=== PATIENT | male | born 1945 | race Caucasian/White ===

== ENCOUNTER 2016-10-30 11:00 | Outpatient (CLI) | payer MEDICARE, OTHER | END 2016-10-30 11:01 | disposition home or self-care (01) | DX: I10 Essential (primary) hypertension (principal); N40.1 Benign prostatic hyperplasia with lower urinary tract symptoms; E74.39 Other disorders of intestinal carbohydrate absorption ==

== ENCOUNTER 2017-02-23 12:58 | Emergency (ER) | payer MEDICARE, OTHER ==
[2017-02-23 13:03] VITALS: BP 136/68
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
--- NOTE | 2017-02-23 14:41 | XRAY Preliminary Report ---
Exam: XR Ribs w/PA Chest LT IMPRESSION: Normal chest and rib radiography. [facility] SITE ID: [id number]
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
== END 2017-02-23 13:38 | disposition home or self-care (01) ==
LOC: ED 12:58
DX: S20.212A Contusion of left front wall of thorax, initial encounter (principal); V18.0XXA Pedal cycle driver injured in noncollision transport accident in nontraffic accident, initial encounter; Y93.55 Activity, bike riding; R03.0 Elevated blood-pressure reading, without diagnosis of hypertension; N40.0 Benign prostatic hyperplasia without lower urinary tract symptoms; Z86.010 Personal history of colon polyps; Z87.442 Personal history of urinary calculi
CPT/HCPCS: 99282; 99283

== ENCOUNTER 2017-10-06 12:41 | Emergency (ER) | payer MEDICARE, OTHER ==
[2017-10-06 12:48] VITALS: BP 144/81
--- NOTE | 2017-10-06 12:50 | ED Physician Documentation ---
PD HPI URI - Stated complaint Stated Complaint: COUGH,CONGESTION,SORE THROAT - Chief complaint Chief Complaint: Resp - History obtained from History obtained from: Patient, Family - History of Present Illness Timing - onset: Other (He has been ill for about 13 days with minimally productive cough, low-grade fevers. He has had markedly decreased active activity because of this, and has been sleeping in his chair because he feels more short of breath when laying flat.) Review of Systems Constitutional: reports: Fever, Chills, Myalgias (at the outset, now gone) Nose: reports: Rhinorrhea / runny nose (gone) Respiratory: reports: Dyspnea (mild), Cough GI: reports: Abdominal Pain (from coughing) Skin: reports: Rash (had a rash on Left abd wall, now gone) PD PAST MEDICAL HISTORY - Past Medical History Cardiovascular: None Respiratory: None Neuro: None Endocrine/Autoimmune: None GI: Colon polyps : Benign prostate hypertrophy, Kidney stones HEENT: None Psych: None Musculoskeletal: Chronic back pain Derm: None - Past Surgical History Past Surgical History: Yes General: Colonoscopy Ortho: Arthroscopic surgery - Present Medications Home Medications: Ambulatory Orders Medication Instructions Recorded Confirmed Alfuzosin HCl [Uroxatral] 10 mg PO DAILY 07/09/13 10/06/17 Aspirin [Aspir 81] 81 mg PO DAILY 07/09/13 10/06/17 Finasteride 5 mg PO DAILY 07/09/13 10/06/17 Lisinopril 5 mg PO DAILY 07/09/13 10/06/17 Loratadine [Claritin] 10 mg PO DAILY 07/09/13 10/06/17 Fluticasone [Flonase] 1 sprays SHARLENE BID 05/13/15 10/06/17 Albuterol Sulfate [Proventil Hfa 1 - 2 puffs IH Q4H PRN #1 10/06/17 Inhaler] hfa.aer.ad Azithromycin [Zithromax] 250 mg PO DAILY #4 tablet 10/06/17 guaiFENesin/CODEINE [Robitussin AC] 5 - 10 ml PO Q6H PRN #120 ml 10/06/17 - Allergies Allergies/Adverse Reactions: Allergies Allergy/AdvReac Type Severity Reaction Status Date / Time No Known Drug Allergies Allergy Verified 10/06/17 12:48 - Social History Does the pt smoke?: No Smoking Status: Never smoker Does the pt drink ETOH?: No Does the pt have substance abuse?: No - Immunizations Immunizations are current?: Yes - POLST Patient has POLST: No PD ED PE NORMAL - Vitals Vital signs reviewed: Yes - General General: Alert and oriented X 3, No acute distress - HEENT HEENT: PERRL, EOMI, Pharynx benign (s/p tonsillectomy) - Neck Neck: No bony TTP - Cardiac Cardiac: RRR, No murmur - Respiratory Respiratory: No respiratory distress, Clear bilaterally - Abdomen Abdomen: Non tender - Derm Derm: No rash - Neuro Neuro: Alert and oriented X 3, Normal speech Results - Vitals Vitals: Vital Signs - 24 hr 10/06/17 12:44 Temperature 36.5 C Heart Rate 95 Respiratory 16 Rate Blood Pressure 144/81 H O2 Saturation 94 Oxygen O2 Source Room air - Labs Labs: Laboratory Tests 10/06/17 10/06/17 13:20 13:20 WBC 8.5 RBC 4.12 L Hgb 12.5 L Hct 37.1 L MCV 90.2 MCH 30.4 MCHC 33.7 RDW 13.6 Plt Count 311 MPV 8.2 Neut # 5.3 Lymph # 2.1 [place] # 0.8 Eos # 0.3 Baso # 0.0 Absolute Nucleated RBC 0.00 Nucleated RBC % 0.0 Sodium 138 Potassium 3.8 Chloride 100 L Carbon Dioxide 26 Anion Gap 12.0 BUN 19 Creatinine 0.9 Estimated GFR (MDRD) 83 L Glucose 153 H Calcium 9.6 Total Bilirubin 0.3 AST 25 ALT 27 Alkaline Phosphatase 60 Total Protein 7.8 Albumin 4.0 Globulin 3.8 Albumin/Globulin Ratio 1.1 Lipase 24 - Rads (name of study) 2v chest Radiology: EMP read contemporaneously (NAD) PD MEDICAL DECISION MAKING - ED course ED course: 72-year-old with persistent symptoms of bronchitis/post influenza pneumonia for 13 days. Despite reassuring lab work and chest x-ray probably does merit a trial of antibiotics given the time course and pretty classic story for post influenza pneumonia. Departure - Departure Disposition: Home, Self Care Clinical Impression: Bronchitis Condition: Good Record reviewed to determine appropriate education?: Yes Instructions: Bronchitis Acute Dc Prescriptions: Albuterol Sulfate [Proventil Hfa Inhaler] 1 - 2 puffs IH Q4H PRN #1 hfa.aer.ad PRN Reason: Cough Azithromycin [Zithromax] 250 mg PO DAILY #4 tablet guaiFENesin/CODEINE [Robitussin AC] 5 - 10 ml PO Q6H PRN #120 ml PRN Reason: Cough Comments: Call your doctor to arrange a follow-up appointment, make the next available appointment. In the interim, return anytime if worse or if new symptoms develop. Your blood pressure was elevated today on check into the emergency department. This does not mean that you have hypertension, it is a common phenomenon to come to the emergency department and have elevated blood pressure. I recommend that you see your primary care physician within the week to have it rechecked when you are feeling better. Discharge Date/Time: 10/06/17 13:50
[2017-10-06] MEDS ORDERED: guaiFENesin/CODEINE 5 ML UDC PO STA (12:56)
--- NOTE | 2017-10-06 13:15 | XRAY Report ---
EXAM: CHEST RADIOGRAPHY EXAM DATE: 10/06/2017 01:06 PM. CLINICAL HISTORY: Cough, congestion. Chest pain. Shortness of air. COMPARISON: 02/23/2017. TECHNIQUE: 2 views. FINDINGS: Lungs/Pleura: No focal opacities evident. No pleural effusion. No pneumothorax. Normal volumes. Mediastinum: Heart size is normal. Aorta is mildly tortuous. Aortic atherosclerosis. Other: None. IMPRESSION: 1. No acute disease in the chest. [facility] Referring Provider Line: [phone] SITE ID: [id number]
[2017-10-06 13:24] LABS: BASOPHILS % (AUTO) 0.4 %; EOSINOPHILS # (AUTO) 0.3 10^3/uL (0.0-0.7); EOSINOPHILS % (AUTO) 3.5 %; HGB - HEMOGLOBIN 12.5 g/dL (14.0-18.0); LYMPHOCYTES # (AUTO) 2.1 10^3/uL (1.5-3.5); LYMPHOCYTES % (AUTO) 24.2 %; MEAN CORPUSCULAR HEMOGLOBIN 30.4 pg (27.0-31.0); MEAN CORPUSCULAR HGB CONC 33.7 g/dL (32.0-36.0); MEAN CORPUSCULAR VOLUME 90.2 fL (80.0-94.0); MEAN PLATELET VOLUME 8.2 fL (7.4-11.4); MONOCYTES # (AUTO) 0.8 10^3/uL (0.0-1.0); MONOCYTES % (AUTO) 9.5 %; NEUTROPHILS # (AUTO) 5.3 10^3/uL (1.5-6.6); NEUTROPHILS % (AUTO) 62.4 %; PLT - PLATELET COUNT 311 10^3/uL (130-450); RED BLOOD COUNT 4.12 10^6/uL (4.70-6.10); RED CELL DISTRIBUTION WIDTH 13.6 % (12.0-15.0); WHITE BLOOD COUNT 8.5 x10^3/uL (4.8-10.8)
[2017-10-06 13:37] LABS: ALBUMIN/GLOBULIN RATIO 1.1 (1.0-2.2); BILIRUBIN,TOTAL 0.3 mg/dL (0.2-1.0); CALCIUM 9.6 mg/dL (8.5-10.3); CREATININE 0.9 mg/dL (0.6-1.2); TOTAL PROTEIN 7.8 g/dL (6.7-8.2)
[2017-10-06] MEDS ORDERED: AZITHROMYCIN 250 MG TABLET PO STA (13:38)
== END 2017-10-06 13:50 | disposition home or self-care (01) ==
LOC: ED 12:41
DX: J40 Bronchitis, not specified as acute or chronic (principal); R03.0 Elevated blood-pressure reading, without diagnosis of hypertension; N40.0 Benign prostatic hyperplasia without lower urinary tract symptoms; Z86.010 Personal history of colon polyps; Z87.442 Personal history of urinary calculi; Z79.82 Long term (current) use of aspirin
CPT/HCPCS: 36415; 71046; 80053; 83690; 85025; 99283; A9270

== ENCOUNTER 2018-04-01 08:00 | Outpatient (CLI) | payer MEDICARE, OTHER ==
[2018-04-01 13:22] LABS: BASOPHILS % (AUTO) 0.3 %; EOSINOPHILS # (AUTO) 0.3 10^3/uL (0.0-0.7); EOSINOPHILS % (AUTO) 4.4 %; HGB - HEMOGLOBIN 13.2 g/dL (14.0-18.0); LYMPHOCYTES # (AUTO) 1.9 10^3/uL (1.5-3.5); LYMPHOCYTES % (AUTO) 32.6 %; MEAN CORPUSCULAR HEMOGLOBIN 30.8 pg (27.0-31.0); MEAN CORPUSCULAR HGB CONC 32.8 g/dL (32.0-36.0); MEAN PLATELET VOLUME 9.6 fL (7.4-11.4); MONOCYTES # (AUTO) 0.5 10^3/uL (0.0-1.0); MONOCYTES % (AUTO) 9.2 %; NEUTROPHILS # (AUTO) 3.1 10^3/uL (1.5-6.6); NEUTROPHILS % (AUTO) 53.5 %; PLT - PLATELET COUNT 220 10^3/uL (130-450); RED BLOOD COUNT 4.29 10^6/uL (4.70-6.10); RED CELL DISTRIBUTION WIDTH 14.8 % (12.0-15.0); WHITE BLOOD COUNT 5.9 x10^3/uL (4.8-10.8)
[2018-04-01 13:54] LABS: ALBUMIN/GLOBULIN RATIO 1.3 (1.0-2.2); ALKALINE PHOSPHATASE 47 IU/L (42-121); ALT ALANINE AMINOTRANSFERASE 21 IU/L (10-60); AST ASPARTATE AMINOTRANSFERASE 23 IU/L (10-42); BILIRUBIN,TOTAL 0.5 mg/dL (0.2-1.0); BUN - BLOOD UREA NITROGEN 28 mg/dL (6-20); CALCIUM 9.2 mg/dL (8.5-10.3); CARBON DIOXIDE - CO2 22 mmol/L (21-32); CHLORIDE 111 mmol/L (101-111); CHOL/HDL RATIO 2.5 (<5.0); CHOLESTEROL 178 mg/dL; CREATININE 1.1 mg/dL (0.6-1.2); GFR - MDRD 66 (>89); GLUCOSE 113 mg/dL (70-100); HDL CHOLESTEROL 71 mg/dL; LDL CHOLESTEROL,CALCULATED 97 mg/dL; LDL/HDL RATIO 1.4 (<3.6); SODIUM 141 mmol/L (135-145); VLDL CHOLESTEROL 10 mg/dL
== END 2018-04-01 08:01 | disposition home or self-care (01) ==
LOC: LAB.WCP 08:00
PROVIDERS: ATTEND Physician Assistant Medical
DX: I10 Essential (primary) hypertension (principal)
CPT/HCPCS: 36415; 80053; 80061; 83721; 85025

== ENCOUNTER 2018-06-03 14:21 | Emergency (ER) | payer MEDICARE, OTHER ==
[2018-06-03] MEDS ORDERED: BUFFERED LIDOCAINE 10 ML SYRINGE SUBQ ONE (14:33)
[2018-06-03] MEDS ORDERED: cephALEXin 250 MG CAPSULE PO STA (14:33)
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
[2018-06-03 15:42] VITALS: BP 152/69
== END 2018-06-03 15:42 | disposition home or self-care (01) ==
LOC: ED 14:21
DX: S61.402A Unspecified open wound of left hand, initial encounter (principal); W32.0XXA Accidental handgun discharge, initial encounter; R03.0 Elevated blood-pressure reading, without diagnosis of hypertension; Z79.82 Long term (current) use of aspirin
CPT/HCPCS: 12042; 73130; 99283; 99284; A9270

== ENCOUNTER 2018-08-25 07:44 | Day surgery (SDC) | payer MEDICARE, OTHER ==
[2018-08-25] MEDS ORDERED: MIDAZOLAM 2 MG/2 ML VIAL IVP ONE (09:00)
[2018-08-25] MEDS ORDERED: fentaNYL 250 MCG/5 ML VIAL IVP ONE (09:00)
[2018-08-25] MEDS ORDERED: LACTATED RINGERS 1,000 ML IV ONE (09:03)
[2018-08-25 10:26] VITALS: BP 114/67
== END 2018-08-25 07:45 | disposition home or self-care (01) ==
LOC: SDS 07:44
PROVIDERS: ATTEND Surgery
PROC: 0DJD8ZZ Inspection of Lower Intestinal Tract, Via Natural or Artificial Opening Endoscopic (ICD-10-PCS; principal; 2018-08-25 09:00)
DX: K62.5 Hemorrhage of anus and rectum (principal); K57.30 Diverticulosis of large intestine without perforation or abscess without bleeding; K64.8 Other hemorrhoids; Z86.010 Personal history of colon polyps; Z80.0 Family history of malignant neoplasm of digestive organs; Z87.891 Personal history of nicotine dependence
CPT/HCPCS: 45378; J3010; J7120

== ENCOUNTER 2019-02-12 08:00 | Outpatient (CLI) | payer MEDICARE, OTHER ==
[2019-02-12 13:42] LABS: ALBUMIN 3.8 g/dL (3.2-5.5); ALBUMIN/GLOBULIN RATIO 1.4 (1.0-2.2); ALKALINE PHOSPHATASE 47 IU/L (42-121); ALT ALANINE AMINOTRANSFERASE 21 IU/L (10-60); AST ASPARTATE AMINOTRANSFERASE 20 IU/L (10-42); BILIRUBIN,TOTAL 0.5 mg/dL (0.2-1.0); BUN - BLOOD UREA NITROGEN 23 mg/dL (6-20); CHOL/HDL RATIO 2.7 (<5.0); CHOLESTEROL 173 mg/dL; CREATININE 0.9 mg/dL (0.6-1.2); GFR - MDRD 82 (>89); HDL CHOLESTEROL 63 mg/dL; TOTAL PROTEIN 6.5 g/dL (6.7-8.2)
[2019-02-12 13:47] LABS: BASOPHILS % (AUTO) 0.8 %; EOSINOPHILS # (AUTO) 0.3 10^3/uL (0.0-0.7); EOSINOPHILS % (AUTO) 5.6 %; HGB - HEMOGLOBIN 12.1 g/dL (14.0-18.0); LYMPHOCYTES # (AUTO) 1.8 10^3/uL (1.5-3.5); LYMPHOCYTES % (AUTO) 38.2 %; MEAN CORPUSCULAR HEMOGLOBIN 30.4 pg (27.0-31.0); MEAN CORPUSCULAR HGB CONC 32.6 g/dL (32.0-36.0); MEAN CORPUSCULAR VOLUME 93.3 fL (80.0-94.0); MEAN PLATELET VOLUME 9.7 fL (7.4-11.4); MONOCYTES # (AUTO) 0.6 10^3/uL (0.0-1.0); NEUTROPHILS # (AUTO) 2.1 10^3/uL (1.5-6.6); NEUTROPHILS % (AUTO) 43.4 %; PLT - PLATELET COUNT 202 10^3/uL (130-450); RED CELL DISTRIBUTION WIDTH 14.9 % (12.0-15.0); WHITE BLOOD COUNT 4.7 x10^3/uL (4.8-10.8)
[2019-02-12 14:06] LABS: LDL CHOLESTEROL,DIRECT 98 mg/dL; LDLD/HDL RATIO 1.6 (<3.6)
[2019-02-12 14:32] LABS: CALCIUM 8.7 mg/dL (8.5-10.3); CARBON DIOXIDE - CO2 24 mmol/L (21-32); CHLORIDE 111 mmol/L (101-111); GLUCOSE 115 mg/dL (70-100); SODIUM 143 mmol/L (135-145)
== END 2019-02-12 23:59 | disposition home or self-care (01) ==
LOC: LAB.WCP 08:00
PROVIDERS: ATTEND Physician Assistant Medical
DX: N40.1 Benign prostatic hyperplasia with lower urinary tract symptoms (principal); I10 Essential (primary) hypertension
CPT/HCPCS: 36415; 80053; 80061; 83721; 84443; 85025

== ENCOUNTER 2019-02-26 07:59 | Outpatient (CLI) | payer MEDICARE, OTHER ==
--- NOTE | 2019-02-26 12:10 | Ultrasound Report ---
Reason: FAMILY HISTORY OF TOBACCO ABUSE OR DEPENDENCE Procedure Date: 02/26/2019 Accession Number: [id number] / [id number] Procedure: US - Aorta Screening CPT Code: FULL RESULT: EXAM: AORTIC DOPPLER ULTRASOUND EXAM DATE: 02/26/2019 08:47 AM. CLINICAL HISTORY: Family history of tobacco abuse or dependence. COMPARISON: None. TECHNIQUE: Real-time sonographic imaging of retroperitoneal vascular structures, including color-flow, Doppler flow and spectral analysis was performed by the radar mechanic. Multiple agency service representative static images were saved for review. FINDINGS: Aorta: The abdominal aorta was adequately visualized. No evidence for abdominal aortic aneurysm. Aorta: Proxima: Sagittal AP 2.7 cm. Mid: Transverse 2.2 x 2.2 cm. Distal: Transverse 2.0 x 2.1 cm. Caliber: WNL: Yes. Plaque visualized: Yes. Iliacs: Right Iliac: Transverse 1.2 x 1.3 cm. Left Iliac: Transverse 1.2 x 1.3 cm. Iliac Vessels: The visualized proximal common iliac arteries are normal in caliber. Other: None. IMPRESSION: No abdominal aortic aneurysm. [facility]
== END 2019-02-26 08:00 | disposition home or self-care (01) ==
LOC: DI 07:59
PROVIDERS: ATTEND Physician Assistant Medical
DX: Z13.6 Encounter for screening for cardiovascular disorders (principal); Z81.2 Family history of tobacco abuse and dependence
CPT/HCPCS: 76706

== ENCOUNTER 2019-07-07 08:00 | Outpatient (CLI) | payer MEDICARE, OTHER ==
[2019-07-07 19:55] LABS: CALCIUM 8.7 mg/dL (8.5-10.3)
== END 2019-07-07 08:01 | disposition home or self-care (01) ==
LOC: LAB.WCP 08:00
PROVIDERS: ATTEND Urology
DX: Z87.442 Personal history of urinary calculi (principal); N40.1 Benign prostatic hyperplasia with lower urinary tract symptoms
CPT/HCPCS: 36415; 80048; 84153

== ENCOUNTER 2019-07-08 07:54 | Outpatient (CLI) | payer MEDICARE, OTHER ==
--- NOTE | 2019-07-09 05:12 | Ultrasound Report ---
Reason: HISTORY NEPHROLITHIASIS Procedure Date: 07/08/2019 Accession Number: [id number] / [id number] Procedure: US - Retroperitoneal CPT Code: FULL RESULT: EXAM: RENAL ULTRASOUND EXAM DATE: 07/08/2019 08:38 AM. CLINICAL HISTORY: HISTORY NEPHROLITHIASIS. COMPARISON: ABDOMEN/PELVIS W/ 05/13/2015 12:57 PM. TECHNIQUE: Real-time scanning was performed with static images obtained. FINDINGS: Right Kidney: 12.1 x 6.5 x 6.0 cm. Multiple parapelvic renal cysts, largest measuring 3.2 x 2.6 x 2.4 cm. No solid renal mass. No hydronephrosis. Left Kidney: 12.9 x 8.1 x 6.5 cm. Multiple parapelvic renal cysts, largest measuring 4.5 x 2.4 x 4.2 cm. No solid renal mass. No hydronephrosis. Bladder: Bilateral jets seen. The prevoid bladder volume was 90 cc. The postvoid bladder volume was 0 cc. Other: None. IMPRESSION: 1. Bilateral parapelvic renal cysts. No solid renal mass. 2. No hydronephrosis [facility]
== END 2019-07-08 07:55 | disposition home or self-care (01) ==
LOC: DI 07:54
PROVIDERS: ATTEND Urology
DX: Q61.02 Congenital multiple renal cysts (principal); Z87.442 Personal history of urinary calculi
CPT/HCPCS: 76770

== ENCOUNTER 2020-06-15 17:48 | Emergency (ER) | payer MEDICARE, OTHER ==
[2020-06-15] MEDS ORDERED: BUFFERED LIDOCAINE 10 ML SYRINGE SUBQ STA (17:54)
[2020-06-15] MEDS ORDERED: TETANUS/DIPHTHERIA/PERTUSSIS 0.5 ML SYRINGE IM ONE (17:54)
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
[2020-06-15 18:26] VITALS: BP 138/68
== END 2020-06-15 18:26 | disposition home or self-care (01) ==
LOC: ED 17:48
DX: S61.412A Laceration without foreign body of left hand, initial encounter (principal); W26.9XXA Contact with unspecified sharp object(s), initial encounter; Y93.E9 Activity, other interior property and clothing maintenance; Y92.009 Unspecified place in unspecified non-institutional (private) residence as the place of occurrence of the external cause; Z23 Encounter for immunization; Z79.82 Long term (current) use of aspirin
CPT/HCPCS: 12001; 90471; 99282; 99283

== ENCOUNTER 2020-08-08 08:50 | Outpatient (CLI) | payer MEDICARE, OTHER | END 2020-08-08 08:51 | disposition home or self-care (01) | LOC: LAB 08:50 | PROVIDERS: ATTEND Urology | DX: R31.29 Other microscopic hematuria (principal) | CPT/HCPCS: 36415; 82565; 84520 ==

== ENCOUNTER 2020-08-08 09:19 | Outpatient (CLI) | payer MEDICARE, OTHER ==
[2020-08-08] MEDS ORDERED: IOVERSOL 320 100 ML VIAL IVP ONE ×2 (09:34→10:01)
--- NOTE | 2020-08-08 12:26 | CT Report ---
PROCEDURE: IVP INDICATIONS: MICRO HEMATURIA, HX NEPHROLITHIASIS CONTRAST: IV CONTRAST: Optiray 320 ml: 140 PO CONTRAST: *NO PO CONTRAST TECHNIQUE: After the administration of intravenous contrast, 5 mm thick sections acquired from the diaphragms to the symphysis. 5 mm thick coronal and sagittal reformats were acquired. For radiation dose reducti on, the following was used: automated exposure control, adjustment of mA and/or kV according to jodi ent size. COMPARISON: None. FINDINGS: Image quality: Excellent. Lung bases: No pleural effusion. Right lower lobe 3 mm pulmonary nodule, (5/3). Heart size is normal. Urinary system: Both kidneys are normal in size and enhancement. Left kidney calculus measuring 0.9 cm, (4/40). No hydronephrosis. 3 mm nonobstructing calculus in the superior pole the right kidney. Nu merous bilateral peripelvic cysts. No solid renal mass. Small cortical hypodensity in the mid left ki dney too small to further characterize. No upper urinary tract filling defect within the opacified po rtions. The distal left ureter is not well opacified. Bladder wall thickness is normal. Solid organs: Liver and spleen are normal in size and enhancement. Gallbladder is unremarkable. Bi liary system is non dilated. Pancreas enhances normally. No adrenal nodules. Peritoneum and bowel: Bowel loops demonstrate normal wall thickness and caliber. No free fluid or a ir. Nodes and vessels: No retroperitoneal or mesenteric adenopathy by size criteria. Aorta and inferior vena cava are normal in size. Abdominal wall: No ventral hernias. Pelvis: No pathologic free pelvic fluid. Fat-containing left inguinal hernia or lipomatous hypertrop hy. No adenopathy. Bones: No suspicious bony lesions. Mild to moderate DDD at L5-S1. No vertebral body compression frac tures. IMPRESSION: 1. No upper urinary tract filling defect demonstrated. 2. No solid renal mass. 3. Calculus at the left UPJ measuring 9 mm. No hydronephrosis demonstrated to suggest obstruction. -Urology consultation may be beneficial. 4. Additional nonobstructing right kidney stone measuring 3 mm. 5. Numerous bilateral peripelvic cysts. Reviewed by: Keith Holloway MD on 08/08/2020 12:25 PM PST Approved by: Keith Holloway MD on 08/08/2020 12:25 PM PST Station ID: [id number]
== END 2020-08-08 09:20 | disposition home or self-care (01) ==
LOC: DI 09:19
PROVIDERS: ATTEND Urology
DX: N20.0 Calculus of kidney (principal); N28.1 Cyst of kidney, acquired
CPT/HCPCS: 74178; Q9967; 36415; 82565; 84520

== ENCOUNTER 2020-09-09 08:00 | Outpatient (CLI) | payer MEDICARE, OTHER ==
[2020-09-09 12:18] LABS: BASOPHILS % (AUTO) 0.4 %; EOSINOPHILS # (AUTO) 0.2 10^3/uL (0.0-0.7); EOSINOPHILS % (AUTO) 3.9 %; HGB - HEMOGLOBIN 12.2 g/dL (14.0-18.0); LYMPHOCYTES # (AUTO) 2.5 10^3/uL (1.5-3.5); LYMPHOCYTES % (AUTO) 43.7 %; MEAN CORPUSCULAR HEMOGLOBIN 30.9 pg (27.0-31.0); MEAN CORPUSCULAR HGB CONC 31.9 g/dL (32.0-36.0); MEAN CORPUSCULAR VOLUME 96.7 fL (80.0-94.0); MEAN PLATELET VOLUME 11.9 fL (7.4-11.4); MONOCYTES # (AUTO) 0.6 10^3/uL (0.0-1.0); MONOCYTES % (AUTO) 10.8 %; NEUTROPHILS # (AUTO) 2.3 10^3/uL (1.5-6.6); PLT - PLATELET COUNT 203 10^3/uL (130-450); RED BLOOD COUNT 3.95 10^6/uL (4.70-6.10); RED CELL DISTRIBUTION WIDTH 14.4 % (12.0-15.0); WHITE BLOOD COUNT 5.7 x10^3/uL (4.8-10.8)
[2020-09-09 13:51] LABS: ALBUMIN 4.3 g/dL (3.2-5.5); ALBUMIN/GLOBULIN RATIO 1.6 (1.0-2.2); ALKALINE PHOSPHATASE 40 IU/L (42-121); ALT ALANINE AMINOTRANSFERASE 18 IU/L (10-60); AST ASPARTATE AMINOTRANSFERASE 17 IU/L (10-42); BILIRUBIN,TOTAL 0.5 mg/dL (0.2-1.0); BUN - BLOOD UREA NITROGEN 30 mg/dL (6-20); CALCIUM 9.4 mg/dL (8.5-10.3); CARBON DIOXIDE - CO2 25 mmol/L (21-32); CHLORIDE 109 mmol/L (101-111); CHOL/HDL RATIO 3.2 (<5.0); CHOLESTEROL 214 mg/dL; CREATININE 1.1 mg/dL (0.6-1.2); GLUCOSE 115 mg/dL (70-100); HDL CHOLESTEROL 67 mg/dL; LDL CHOLESTEROL,CALCULATED 135 mg/dL; SODIUM 143 mmol/L (135-145); VLDL CHOLESTEROL 12 mg/dL
== END 2020-09-09 08:01 | disposition home or self-care (01) ==
LOC: LAB.WCP 08:00
PROVIDERS: ATTEND Physician Assistant Medical
DX: I10 Essential (primary) hypertension (principal); N40.1 Benign prostatic hyperplasia with lower urinary tract symptoms; N13.8 Other obstructive and reflux uropathy
CPT/HCPCS: 36415; 80053; 80061; 83721; 84153; 84443; 85025

== ENCOUNTER 2021-03-24 07:37 | Outpatient (CLI) | payer MEDICARE, OTHER ==
[2021-03-24 12:38] LABS: ALBUMIN 4.3 g/dL (3.2-5.5); ALBUMIN/GLOBULIN RATIO 1.7 (1.0-2.2); ALKALINE PHOSPHATASE 44 IU/L (42-121); ALT ALANINE AMINOTRANSFERASE 20 IU/L (10-60); AST ASPARTATE AMINOTRANSFERASE 17 IU/L (10-42); BILIRUBIN,TOTAL 0.8 mg/dL (0.2-1.0); BUN - BLOOD UREA NITROGEN 33 mg/dL (6-20); CARBON DIOXIDE - CO2 25 mmol/L (21-32); CHLORIDE 108 mmol/L (101-111); CHOL/HDL RATIO 3.3 (<5.0); CHOLESTEROL 230 mg/dL; GFR - MDRD 73 (>89); GLUCOSE 119 mg/dL (70-100); HDL CHOLESTEROL 69 mg/dL; LDL CHOLESTEROL,CALCULATED 147 mg/dL; LDL/HDL RATIO 2.1 (<3.6); POTASSIUM 4.2 mmol/L (3.5-5.0); SODIUM 141 mmol/L (135-145); TOTAL PROTEIN 6.9 g/dL (6.7-8.2); TRIGLYCERIDES 71 mg/dL; VLDL CHOLESTEROL 14 mg/dL
== END 2021-03-24 23:59 | disposition home or self-care (01) ==
LOC: LAB.WCP 07:37
PROVIDERS: ATTEND Physician Assistant Medical
DX: E78.5 Hyperlipidemia, unspecified (principal)
CPT/HCPCS: 36415; 80053; 80061; 83721

== ENCOUNTER 2021-04-07 08:15 | Outpatient (CLI) | payer MEDICARE, OTHER ==
--- NOTE | 2021-04-07 16:39 | Ultrasound Report ---
PROCEDURE: Head or Neck Soft Tissue INDICATIONS: DYSPHAGIA TECHNIQUE: Real-time scanning was performed of the thyroid gland, with image documentation. COMPARISON: None FINDINGS: Right: Thyroid lobe measures 4.5 x 1.7 x 1.7 cm, and is homogeneous in echotexture. Left: Thyroid lobe measures 3.3 x 1.0 x 1.4 cm, and is homogenous in echotexture. Isthmus: 0.5 mm thick. IMPRESSION: Asymmetric thyroid, right lobe larger than left lobe, without focal nodules. No suspicious findings. Reviewed by: Tyron Verma MD on 04/07/2021 4:38 PM PDT Approved by: Tyron Verma MD on 04/07/2021 4:38 PM PDT Station ID: [id number]
== END 2021-04-07 08:16 | disposition home or self-care (01) ==
LOC: DI 08:15
PROVIDERS: ATTEND Physician Assistant Medical
DX: R13.10 Dysphagia, unspecified (principal)

== ENCOUNTER 2021-10-27 07:55 | Outpatient (CLI) | payer MEDICARE, OTHER ==
[2021-10-27 11:58] LABS: BASOPHILS % (AUTO) 0.2 %; EOSINOPHILS # (AUTO) 0.2 10^3/uL (0.0-0.7); EOSINOPHILS % (AUTO) 3.8 %; HCT - HEMATOCRIT 38.2 % (42.0-52.0); HGB - HEMOGLOBIN 12.1 g/dL (14.0-18.0); LYMPHOCYTES # (AUTO) 2.1 10^3/uL (1.5-3.5); LYMPHOCYTES % (AUTO) 39.2 %; MEAN CORPUSCULAR HEMOGLOBIN 29.8 pg (27.0-31.0); MEAN CORPUSCULAR HGB CONC 31.7 g/dL (32.0-36.0); MEAN CORPUSCULAR VOLUME 94.1 fL (80.0-94.0); MEAN PLATELET VOLUME 11.4 fL (7.4-11.4); MONOCYTES # (AUTO) 0.6 10^3/uL (0.0-1.0); MONOCYTES % (AUTO) 11.6 %; NEUTROPHILS # (AUTO) 2.4 10^3/uL (1.5-6.6); NEUTROPHILS % (AUTO) 45.2 %; PLT - PLATELET COUNT 190 10^3/uL (130-450); RED BLOOD COUNT 4.06 10^6/uL (4.70-6.10); RED CELL DISTRIBUTION WIDTH 14.1 % (12.0-15.0); WHITE BLOOD COUNT 5.3 x10^3/uL (4.8-10.8)
[2021-10-27 12:28] LABS: ALBUMIN 3.9 g/dL (3.2-5.5); ALBUMIN/GLOBULIN RATIO 1.3 (1.0-2.2); ALKALINE PHOSPHATASE 41 IU/L (42-121); ALT ALANINE AMINOTRANSFERASE 15 IU/L (10-60); AST ASPARTATE AMINOTRANSFERASE 16 IU/L (10-42); BILIRUBIN,TOTAL 0.4 mg/dL (0.2-1.0); BUN - BLOOD UREA NITROGEN 35 mg/dL (6-20); CARBON DIOXIDE - CO2 26 mmol/L (21-32); CHLORIDE 108 mmol/L (101-111); GFR - MDRD 72 (>89); GLUCOSE 124 mg/dL (70-100); POTASSIUM 4.5 mmol/L (3.5-5.0); SODIUM 142 mmol/L (135-145); TOTAL PROTEIN 6.8 g/dL (6.7-8.2)
[2021-10-27 12:32] LABS: THYROID STIMULATING HORMONE 4.57 uIU/mL (0.34-5.60)
[2021-10-27 12:33] LABS: ESTIMATED AVERAGE GLUCOSE 134 mg/dL (70-100); HEMOGLOBIN A1c% 6.3 % (4.27-6.07)
[2021-10-27 16:55] LABS: CHOL/HDL RATIO 3.6 (<5.0); CHOLESTEROL 218 mg/dL; HDL CHOLESTEROL 61 mg/dL; LDL CHOLESTEROL,CALCULATED 140 mg/dL; LDL/HDL RATIO 2.3 (<3.6); TRIGLYCERIDES 84 mg/dL; VLDL CHOLESTEROL 17 mg/dL
== END 2021-10-27 07:56 | disposition home or self-care (01) ==
LOC: LAB.N 07:55
PROVIDERS: ATTEND Physician Assistant Medical
DX: I10 Essential (primary) hypertension (principal); E78.5 Hyperlipidemia, unspecified; R73.9 Hyperglycemia, unspecified; N40.1 Benign prostatic hyperplasia with lower urinary tract symptoms; Z79.899 Other long term (current) drug therapy; N13.8 Other obstructive and reflux uropathy
CPT/HCPCS: 36415; 80053; 80061; 83036; 83721; 84153; 84443; 85025

== ENCOUNTER 2022-02-05 06:56 | Outpatient (CLI) | payer MEDICARE, OTHER ==
--- NOTE | 2022-02-05 12:20 | Ultrasound Report ---
PROCEDURE: Carotid Doppler Complete INDICATIONS: NEAR SYNCOPE TECHNIQUE: Color and pulse Doppler interrogation was performed of both carotid systems, with image documentation and velocity measurements. COMPARISON: None FINDINGS: Right side: Brachial blood pressure: 144/70 mm Hg. Common carotid artery peak systolic velocity: 68 cm/sec. Internal carotid artery peak systolic velocity: 91 cm/sec. Internal carotid artery end diastolic velocity: 30 cm/sec. External carotid artery peak systolic velocity: 95 cm/sec. ICA/CCA peak systolic ratio: 1.34. Ye scale imaging description: Calcified plaque Percent internal carotid artery stenosis: Less than 50% . Vertebral artery: Flow direction is antegrade. Left side: Brachial blood pressure: 143/68 mm Hg. Common carotid artery peak systolic velocity: 56 cm/sec. Internal carotid artery peak systolic velocity: 92 cm/sec. Internal carotid artery end diastolic velocity: 35 cm/sec. External carotid artery peak systolic velocity: 72 cm/sec. ICA/CCA peak systolic ratio: 1.64 . Ye scale imaging description: Calcified plaque Percent internal carotid artery stenosis: Less than 50% . Vertebral artery: Flow direction is antegrade. IMPRESSION: Less than 50% stenosis of the right left internal carotid arteries. Hypertension at the time of image acquisition. The estimate of stenosis included in the report of the imaging study was calculated using the NASCET method Reviewed by: Catina Meyers MD, PhD on 02/05/2022 12:19 PM PDT Approved by: Catina Meyers MD, PhD on 02/05/2022 12:19 PM PDT Station ID: [id number]
== END 2022-02-05 06:57 | disposition home or self-care (01) ==
LOC: DI 06:56
PROVIDERS: ATTEND Internal Medicine
DX: I65.23 Occlusion and stenosis of bilateral carotid arteries (principal); R55 Syncope and collapse; I10 Essential (primary) hypertension
CPT/HCPCS: 93880

== ENCOUNTER 2023-04-04 07:13 | Outpatient (CLI) | payer MEDICARE, OTHER ==
[2023-04-04 13:18] LABS: ESTIMATED AVERAGE GLUCOSE 146 mg/dL (70-100); HEMOGLOBIN A1c% 6.7 % (4.27-6.07)
[2023-04-04 13:28] LABS: ALBUMIN 4.2 g/dL (3.2-5.5); ALBUMIN/GLOBULIN RATIO 1.4 (1.0-2.2); ALKALINE PHOSPHATASE 46 IU/L (42-121); ALT ALANINE AMINOTRANSFERASE 19 IU/L (10-60); AST ASPARTATE AMINOTRANSFERASE 18 IU/L (10-42); BILIRUBIN,TOTAL 0.6 mg/dL (0.2-1.0); BUN - BLOOD UREA NITROGEN 27 mg/dL (6-20); CALCIUM 9.3 mg/dL (8.5-10.3); CARBON DIOXIDE - CO2 28 mmol/L (21-32); CHLORIDE 105 mmol/L (101-111); CHOL/HDL RATIO 3.7 (<5.0); CHOLESTEROL 233 mg/dL; CREATININE 1.2 mg/dL (0.6-1.2); GFR - MDRD 59 (>89); GLUCOSE 130 mg/dL (70-100); HDL CHOLESTEROL 63 mg/dL; LDL CHOLESTEROL,CALCULATED 150 mg/dL; LDL/HDL RATIO 2.4 (<3.6); POTASSIUM 4.7 mmol/L (3.5-5.0); SODIUM 139 mmol/L (135-145); TOTAL PROTEIN 7.1 g/dL (6.7-8.2); TRIGLYCERIDES 98 mg/dL; VLDL CHOLESTEROL 20 mg/dL
== END 2023-04-04 07:14 | disposition home or self-care (01) ==
LOC: LAB.N 07:13
PROVIDERS: ATTEND Physician Assistant Medical
DX: E78.5 Hyperlipidemia, unspecified (principal); R73.9 Hyperglycemia, unspecified
CPT/HCPCS: 36415; 80053; 80061; 83036; 83721

== ENCOUNTER 2023-04-24 08:00 | Outpatient (CLI) | payer MEDICARE, OTHER ==
[2023-04-24 10:54] LABS: BILIRUBIN,URINE NEGATIVE (NEGATIVE); GLUCOSE, URINE (UA) NEGATIVE (NEGATIVE); KETONES,URINE (UA) NEGATIVE (NEGATIVE); LEUKOCYTE ESTERASE, URINE NEGATIVE (NEGATIVE); NITRITE,URINE NEGATIVE (NEGATIVE); OCCULT BLOOD,URINE NEGATIVE (NEGATIVE); PH,URINE 5.5 PH (5.0-7.5); PROTEIN,URINE NEGATIVE (NEGATIVE); UROBILINOGEN,URINE 0.2 (NORMAL) E.U./dL (NORMAL)
[2023-04-24 10:56] LABS: CLARITY,URINE CLEAR (CLEAR)
[2023-04-24 11:05] LABS: RBC,URINE 0-5 /HPF (0-5); WBC,URINE 0-3 /HPF (0-3)
[2023-04-24 11:06] LABS: BACTERIA,URINE Few /HPF (None Seen); SQUAMOUS EPITHELIAL CELL,UR RARE Squamous (<= Few)
== END 2023-04-24 23:59 | disposition home or self-care (01) ==
LOC: LAB 08:00
PROVIDERS: ATTEND Urology
DX: N40.1 Benign prostatic hyperplasia with lower urinary tract symptoms (principal); N13.8 Other obstructive and reflux uropathy
CPT/HCPCS: 81001; 87086

== ENCOUNTER 2023-07-18 07:05 | Outpatient (CLI) | payer MEDICARE, OTHER ==
[2023-07-18 12:29] LABS: ALBUMIN 4.5 g/dL (3.2-5.5); ALKALINE PHOSPHATASE 43 IU/L (42-121); ALT ALANINE AMINOTRANSFERASE 18 IU/L (10-60); AST ASPARTATE AMINOTRANSFERASE 19 IU/L (10-42); BILIRUBIN,TOTAL 0.4 mg/dL (0.2-1.0); BUN - BLOOD UREA NITROGEN 18 mg/dL (6-20); CALCIUM 9.6 mg/dL (8.5-10.3); CARBON DIOXIDE - CO2 30 mmol/L (21-32); CHLORIDE 108 mmol/L (101-111); CHOL/HDL RATIO 2.2 (<5.0); CHOLESTEROL 122 mg/dL; CREATININE 1.1 mg/dL (0.6-1.3); GFR - MDRD 65 (>89); GLUCOSE 98 mg/dL (74-104); HDL CHOLESTEROL 55 mg/dL; LDL CHOLESTEROL,CALCULATED 54 mg/dL; POTASSIUM 4.4 mmol/L (3.5-4.5); SODIUM 143 mmol/L (135-145); TOTAL PROTEIN 6.7 g/dL (6.4-8.9); TRIGLYCERIDES 64 mg/dL (48-352); VLDL CHOLESTEROL 13 mg/dL
[2023-07-18 12:48] LABS: ESTIMATED AVERAGE GLUCOSE 131 mg/dL (70-100); HEMOGLOBIN A1c% 6.2 % (4.27-6.07)
== END 2023-07-18 07:06 | disposition home or self-care (01) ==
LOC: LAB.N 07:05
PROVIDERS: ATTEND Physician Assistant Medical
DX: E11.9 Type 2 diabetes mellitus without complications (principal)
CPT/HCPCS: 36415; 80053; 80061; 83036; 83721

== ENCOUNTER 2023-08-18 12:12 | Outpatient (CLI) | payer MEDICARE, OTHER | END 2023-08-18 12:13 | disposition short-term general hospital (02) | LOC: EMS 12:12 | DX: R45.851 Suicidal ideations (principal); R45.89 Other symptoms and signs involving emotional state; Z56.89 Other problems related to employment | CPT/HCPCS: A0425; A0427 ==

== ENCOUNTER 2023-08-18 12:42 | Inpatient (IN) | payer MEDICARE, OTHER ==
--- NOTE | 2023-08-18 13:05 | ED Physician Documentation ---
History of Present Illness - Stated complaint Stated Complaint: FALL/BACK PX - Chief complaint Chief Complaint: Back Pain - History obtained from History obtained from: Patient, Family - History of Present Illness Timing: Last night Pain level max: 4 Pain level now: 2 - Additonal information Additional information: Patient is a 78-year-old male with a history of hypertension who presents to the emergency department after a fall last night. He states that he felt dizzy last night and tried to grab the towel bar, he states the towel bar ripped out of the wall and he landed on his back. He states that it took him about 20 minutes to get up. This morning he noted a fever. He does have a history of kidney stones and is having some low back pain. He states he did strike his head. He does not have any focal weakness or numbness. No slurred speech. Does not take any blood thinners. Worse with movement, better with rest. Review of Systems Constitutional: reports: Fever, Chills Nose: denies: Rhinorrhea / runny nose, Congestion Respiratory: denies: Cough GI: denies: Abdominal Pain, Nausea, Vomiting, Diarrhea : denies: Dysuria, Frequency, Hesitancy PD PAST MEDICAL HISTORY - Past Medical History Past Medical History: Yes Cardiovascular: None Respiratory: None Neuro: None Endocrine/Autoimmune: None GI: Colon polyps : Benign prostate hypertrophy, Kidney stones HEENT: None Psych: None Musculoskeletal: Chronic back pain Derm: None - Past Surgical History Past Surgical History: Yes General: Colonoscopy Ortho: Arthroscopic surgery - Present Medications Home Medications: Ambulatory Orders Medication Instructions Recorded Confirmed Finasteride 5 mg PO DAILY 07/09/13 08/18/23 Lisinopril 5 mg PO DAILY 07/09/13 08/18/23 Loratadine [Claritin] 10 mg PO DAILY 07/09/13 08/18/23 Rosuvastatin Calcium [Crestor] 10 mg PO DAILY 04/25/23 08/18/23 Tamsulosin [Flomax] 1 cap PO DAILY 04/25/23 08/18/23 Gabapentin [Neurontin] 300 mg PO HS 08/18/23 08/18/23 oxyBUTYnin chloride [Oxybutynin 5 mg PO DAILY 08/18/23 08/18/23 Chloride] - Allergies Allergies/Adverse Reactions: Allergies Allergy/AdvReac Type Severity Reaction Status Date / Time No Known Drug Allergies Allergy Verified 04/25/23 11:52 - Social History Does the pt smoke?: No Smoking Status: Never smoker Does the pt drink ETOH?: No Does the pt have substance abuse?: No - Immunizations Immunizations are current?: Yes - POLST Patient has POLST: No PD ED PE NORMAL - Vitals Vital signs reviewed: Yes - General General: Alert and oriented X 3, No acute distress - HEENT HEENT: Atraumatic, PERRL, Moist mucous membranes - Neck Neck: Supple, no meningeal sign, No bony TTP - Cardiac Cardiac: RRR, Strong equal pulses - Respiratory Respiratory: No respiratory distress, Clear bilaterally - Abdomen Abdomen: Soft, Non tender, Non distended - Back Back: No CVA TTP - Derm Derm: Warm and dry - Extremities Extremities: No edema, No calf tenderness / cord - Neuro Neuro: Alert and oriented X 3 - Psych Psych: Normal mood, Normal affect Results - Vitals Vitals: Vital Signs - 24 hr 08/18/23 08/18/23 08/18/23 12:44 12:58 14:54 Temperature 38.8 C H 36.8 C Heart Rate 86 80 101 H Respiratory 25 H 18 Rate Blood Pressure 131/61 H 116/72 O2 Saturation 90 L 93 97 Oxygen O2 Source Room air - Labs Labs: Laboratory Tests 08/18/23 08/18/23 08/18/23 15:18 15:18 15:49 WBC 10.2 RBC 3.54 L Hgb 10.5 L Hct 33.6 L MCV 94.9 H MCH 29.7 MCHC 31.3 L RDW 13.8 Plt Count 178 MPV 11.1 Neut # (Auto) 8.0 H Lymph # (Auto) 1.0 L Nance # (Auto) 1.2 H Eos # (Auto) 0.0 Baso # (Auto) 0.0 Absolute Nucleated RBC 0.00 Nucleated RBC % 0.0 Sodium 139 Potassium 3.9 Chloride 106 Carbon Dioxide 28 Anion Gap 5.0 L BUN 30 H Creatinine 1.6 H Estimated GFR (MDRD) 42 L Glucose 113 H Calcium 9.1 Phosphorus 3.7 Magnesium 1.9 Total Bilirubin 0.3 AST 17 ALT 13 Alkaline Phosphatase 42 Total Protein 6.1 L Albumin 3.8 Globulin 2.3 Albumin/Globulin Ratio 1.7 Lipase < 10 L Urine Color YELLOW Urine Clarity CLEAR Urine pH 6.0 Ur Specific [place] 1.020 Urine Protein TRACE Urine Glucose (UA) NEGATIVE Urine Ketones NEGATIVE Urine Occult Blood SMALL H Urine Nitrite NEGATIVE Urine Bilirubin NEGATIVE Urine Urobilinogen 0.2 (NORMAL) Ur Leukocyte Esterase SMALL H Urine RBC 6-10 H Urine WBC 11-25 H Ur Squamous Epith Cells RARE Squamous Urine Bacteria Few Ur Microscopic Review INDICATED Urine Culture Comments INDICATED - Rads (name of study) head CT Relevant Findings:: Final report received, See rad report C spine CT Relevant Findings:: Final report received, See rad report T spine CT Relevant Findings:: Final report received, See rad report L spine CT Relevant Findings:: Final report received, See rad report pelvis CT Relevant Findings:: Final report received, See rad report PD Medical Decision Making - ED course Complexity details: reviewed results, re-evaluated patient, considered differential, d/w patient ED course: Due to the patient's diffuse back pain, inability to pinpoint any specific point of pain and some pelvic pain, extensive CT scanning was undertaken to rule out any fractures. No acute findings on head CT, cervical spine CT, thoracic, lumbar spine CTs. His pelvic CT does show a 1 cm left ureteral stone, obstructing. He had a temperature of 38.8 upon arrival to the emergency department. Blood cultures drawn. Lactate drawn. Rocephin given. Discussed the case with Dr. Santos, urology on-call, he will admit the patient and plan on taking him to the OR tomorrow for stent placement and stone removal. Patient is well-appearing, nontoxic. This document was made in part using voice recognition software. While efforts are made to proofread this document, sound alike and grammatical errors may occur. Departure - Departure Disposition: [facility] DC/Xfer Clinical Impression: Ureterolithiasis UTI (urinary tract infection) Qualifiers: Urinary tract infection type: acute cystitis Hematuria presence: without hematuria Qualified Code(s): N30.00 - Acute cystitis without hematuria Fever Qualifiers: Fever type: unspecified Qualified Code(s): R50.9 - Fever, unspecified Condition: Stable Discharge Date/Time: 08/18/23 17:51
[2023-08-18] MEDS ORDERED: SODIUM CHLORIDE 0.9% 1,000 ML IV STA ×2 (15:09→16:39)
[2023-08-18 15:22] LABS: BASOPHILS % (AUTO) 0.2 %; HCT - HEMATOCRIT 33.6 % (42.0-52.0); HGB - HEMOGLOBIN 10.5 g/dL (14.0-18.0); MEAN CORPUSCULAR HEMOGLOBIN 29.7 pg (27.0-31.0); MEAN CORPUSCULAR HGB CONC 31.3 g/dL (32.0-36.0); MEAN CORPUSCULAR VOLUME 94.9 fL (80.0-94.0); MEAN PLATELET VOLUME 11.1 fL (7.4-11.4); MONOCYTES # (AUTO) 1.2 10^3/uL (0.0-1.0); MONOCYTES % (AUTO) 11.3 %; NEUTROPHILS % (AUTO) 78.1 %; PLT - PLATELET COUNT 178 10^3/uL (130-450); RED BLOOD COUNT 3.54 10^6/uL (4.70-6.10); RED CELL DISTRIBUTION WIDTH 13.8 % (12.0-15.0); WHITE BLOOD COUNT 10.2 x10^3/uL (4.8-10.8)
[2023-08-18 15:40] LABS: ALBUMIN 3.8 g/dL (3.2-5.5); ALBUMIN/GLOBULIN RATIO 1.7 (1.0-2.2); ALKALINE PHOSPHATASE 42 IU/L (42-121); ALT ALANINE AMINOTRANSFERASE 13 IU/L (10-60); AST ASPARTATE AMINOTRANSFERASE 17 IU/L (10-42); BILIRUBIN,TOTAL 0.3 mg/dL (0.2-1.0); BUN - BLOOD UREA NITROGEN 30 mg/dL (6-20); CALCIUM 9.1 mg/dL (8.5-10.3); CARBON DIOXIDE - CO2 28 mmol/L (21-32); CHLORIDE 106 mmol/L (101-111); CREATININE 1.6 mg/dL (0.6-1.3); GFR - MDRD 42 (>89); GLUCOSE 113 mg/dL (74-104); LIPASE < 10 U/L (11-82); MAGNESIUM 1.9 mg/dL (1.7-2.3); PHOSPHORUS 3.7 mg/dL (2.5-5.0); POTASSIUM 3.9 mmol/L (3.5-4.5); SODIUM 139 mmol/L (135-145); TOTAL PROTEIN 6.1 g/dL (6.4-8.9)
--- NOTE | 2023-08-18 15:51 | CT Report ---
PROCEDURE: HEAD WO INDICATIONS: fall, pain TECHNIQUE: Noncontrast 4.5 mm thick angled axial sections acquired from the foramen magnum to the vertex. For r adiation dose reduction, the following was used: automated exposure control, adjustment of mA and/or kV according to patient size. COMPARISON: Correlation is made with the accompanying CT examinations. FINDINGS: Image quality: There is streak artifact seen through the skull base. CSF spaces: Basal cisterns are patent. No extra-axial fluid collections. Ventricles are normal in size and shape. Brain: No midline shift. No intracranial masses or hemorrhage. Ye-white matter interface is norm al. Skull and face: Calvarium and visualized facial bones are intact, without suspicious lesions. Sinuses: Moderate mucosal thickening can be seen within the left maxillary sinus, mild mucosal thick ening elsewhere within the paranasal sinuses. No significant abnormal fluid can be seen within the ma stoid air cells. IMPRESSION: No acute intracranial pathology. No intracranial hemorrhage is seen. Reviewed by: Tulio Melo MD on 08/18/2023 2:49 PM [facility] Approved by: Tulio Melo MD on 08/18/2023 2:49 PM [facility] Station ID: [id number]
--- NOTE | 2023-08-18 15:53 | CT Report ---
PROCEDURE: CERVICAL SPINE WO INDICATIONS: fall, pain TECHNIQUE: Noncontrast 3 mm thick sections acquired from the skull base to the T4 level. Sagittal and coronal r eformats were then constructed. For radiation dose reduction, the following was used: automated exp osure control, adjustment of mA and/or kV according to patient size. COMPARISON: Correlation is made with the accompanying CT examinations. FINDINGS: Image quality: Excellent. Bones: No fractures or dislocations. Visualized superior ribs are intact. Focal degenerative change can be seen involving the C1-C2 interface anteriorly. There is moderate to severe disc space narrowing seen at C6-C7. Milder degenerative changes are seen elsewhere. Multiple levels of facet arthropathy can be seen, including fusion on the left at the C2-C3 level. Soft tissues: Prevertebral soft tissues are normal in thickness. No paravertebral hematomas. No ap ical pneumothoraces. Atherosclerotic calcification is seen. IMPRESSION: Negative for acute fracture. Multiple levels of underlying degenerative change can be seen. Reviewed by: Tulio Melo MD on 08/18/2023 2:51 PM [place] Approved by: Tulio Melo MD on 08/18/2023 2:51 PM [facility] Station ID: [id number]
--- NOTE | 2023-08-18 15:55 | CT Report ---
PROCEDURE: THORACIC SPINE WO INDICATIONS: fall, pain TECHNIQUE: Noncontrast 3 mm thick sections acquired through the region of interest in the thoracic spine. Sagit candido and coronal reformats were then constructed. For radiation dose reduction, the following was used : automated exposure control, adjustment of mA and/or kV according to patient size. COMPARISON: Correlation is made with the accompanying CT examinations. Correlation is also made with prior CT, 08/08/2020 FINDINGS: Image quality: There is partial resolution seen to the level of the shoulders, with quantum mottle ar tifact. This limits evaluation of the upper thoracic spine. Bones: There is normal overall bony alignment. No acute vertebral body compression fractures. No s uspicious sclerotic or lytic bony lesions. Central spinal canal is of normal overall caliber. Soft tissues: No paravertebral masses or hematomas. Visualized posteromedial lungs appear clear. A therosclerotic calcification can be seen, including involving the coronary arteries. Prominent bilate ral peripelvic cysts can be seen. IMPRESSION: No acute fracture can be seen, to the limits of this study. Additional findings: Atherosclerotic calcification, including involving coronary arteries Bilateral prominent peripelvic cysts Reviewed by: Tulio Melo MD on 08/18/2023 2:53 PM [facility] Approved by: Tulio Melo MD on 08/18/2023 2:53 PM [place] Station ID: [id number]
[2023-08-18 15:59] LABS: BILIRUBIN,URINE NEGATIVE (NEGATIVE); CLARITY,URINE CLEAR (CLEAR); GLUCOSE, URINE (UA) NEGATIVE (NEGATIVE); KETONES,URINE (UA) NEGATIVE (NEGATIVE); LEUKOCYTE ESTERASE, URINE SMALL (NEGATIVE); NITRITE,URINE NEGATIVE (NEGATIVE); OCCULT BLOOD,URINE SMALL (NEGATIVE); PROTEIN,URINE TRACE mg/dL (NEGATIVE); UROBILINOGEN,URINE 0.2 (NORMAL) E.U./dL (NORMAL)
--- NOTE | 2023-08-18 15:59 | CT Report ---
PROCEDURE: PELVIS WO INDICATIONS: fall, pain TECHNIQUE: Noncontrast 3 mm axial sections acquired through the bony pelvis, with coronal and sagittal reformatt ing. For radiation dose reduction, the following was used: automated exposure control, adjustment of mA and/or kV according to patient size. COMPARISON: Correlation is made with the company CT examinations. Correlation is also made with [facility] region CT, 08/08/2020 FINDINGS: Image quality: Excellent. Bones: Negative for acute fracture. Degenerative changes are seen throughout, including involving nahomy th hips and the visualized lower lumbar spine. There is fusion of the left sacroiliac joint. Soft tissues: There is moderate to prominent left-sided hydronephrosis. There is an obstructing ston e seen within the left ureter, as on series 3 image 18 and on series 5 image 46, measuring 1 cm and 1 400 Hounsfield units. Bilateral peripelvic cysts are again seen. No dilated loops of small bowel are seen. Atherosclerotic calcification is seen. There is a moderate fat-containing left renal hernia IMPRESSION: There is a 1 cm obstructing stone seen within the left proximal ureter. Associated left-sided hydrour eter and hydronephrosis can be seen. No acute bony abnormality is seen. Underlying degenerative changes are seen. Additional findings: Bilateral peripelvic cysts are seen. Moderate fat-containing left inguinal hernia Reviewed by: Tuilo Melo MD on 08/18/2023 2:58 PM AKST Approved by: Tulio Melo MD on 08/18/2023 2:58 PM [place] Station ID: [id number]
[2023-08-18 16:02] LABS: BACTERIA,URINE Few /HPF (None Seen); SQUAMOUS EPITHELIAL CELL,UR RARE Squamous (<= Few)
--- NOTE | 2023-08-18 16:03 | CT Report ---
PROCEDURE: LUMBAR SPINE WO INDICATIONS: fall, pain TECHNIQUE: Noncontrast 3 mm thick sections acquired from the T12 level to the sacrum. Sagittal and coronal refo rmats were constructed. For radiation dose reduction, the following was used: automated exposure co ntrol, adjustment of mA and/or kV according to patient size. COMPARISON: Correlation is made with the accompanying CT examinations. Correlation is also made with prior CT, 08/08/2020. FINDINGS: Image quality: Excellent. Bones: There is normal bony alignment. No acute vertebral body compression fractures. No suspiciou s lytic or blastic bony lesions. Central spinal caliber is of normal overall caliber. No pars defec ts. This patient has transitional anatomy. For the purposes of this examination, the level with last well -developed ribs is considered to be T12. By this numbering scheme, the S1 level is transitional and i s partially lumbarized. There is a vestigial rib seen on the right at the L1 level. Focal L5-S1 degenerative change is seen, with moderate disc space narrowing, with associated endplate irregularity and sclerosis. Vacuum disc phenomenon is seen at this level. There is moderate to sev ere right-sided and moderate left-sided neuroforaminal narrowing. Milder degenerative changes are seen elsewhere. Soft tissues: There is a 1 cm obstructive stone seen within the left ureter, as on series 2 image 63 , measuring 1400 Hounsfield units. There is associated left-sided hydroureter and hydronephrosis. Pro minent bilateral parapelvic cysts can be seen. No retroperitoneal masses or hematomas. Visualized aorta is normal in caliber. Atherosclerotic calc ification is seen. IMPRESSION: 1 cm obstructing stone within the left ureter. No acute bony abnormality is seen. Focal L5-S1 degenerative change is seen. Additional findings: Transitional lumbar anatomy Reviewed by: Tulio Melo MD on 08/18/2023 3:01 PM [facility] Approved by: Tulio Melo MD on 08/18/2023 3:01 PM [facility] Station ID: [id number]
[2023-08-18] MEDS ORDERED: cefTRIAXone 1 GM VIAL IVP STA (16:12)
[2023-08-18] MEDS ORDERED: HYDROmorphone 1 MG/ML CARPUJECT IVP STA (16:21)
[2023-08-18] MEDS ORDERED: ONDANSETRON 4 MG/2 ML VIAL IVP PRN (16:25)
[2023-08-18] MEDS ORDERED: SODIUM CHLORIDE FLUSH 0.9% 10 ML SYRINGE IVP PRN (16:25)
[2023-08-18] MEDS ORDERED: MORPHINE 2 MG/ML CARPUJECT IVP PRN (16:42)
[2023-08-18] MEDS ORDERED: oxyCODONE 5 MG TABLET PO PRN (16:42)
[2023-08-18] MEDS ORDERED: ZOLPIDEM 5 MG TABLET PO PRN (16:42)
[2023-08-18] MEDS ORDERED: ACETAMINOPHEN 325 MG TABLET PO PRN (16:42)
[2023-08-18] MEDS ORDERED: TAMSULOSIN 0.4 MG CAPSULE PO STA (17:00)
[2023-08-18] MEDS: SODIUM CHLORIDE FLUSH 0.9% 10 ML SYRINGE IVP SCH (17:17)
[2023-08-18] MEDS: SODIUM CHLORIDE 0.9% 1,000 ML IV SCH (17:20)
--- NOTE | 2023-08-18 17:21 | SURGERY HX AND PHYSICAL(T) ---
Surgical History & Physical - Chief Complaint/HPI Chief Complaint: Fever/fall History of Present Illness: Murray is a 78-year-old male with history of BPH, kidney stones, erectile dysfunction. He was last seen in the urology clinic 3 months ago where we offered further evaluation of his kidney stones but he was not interested at that time. He was going to follow-up in a years time. On Saturday, August 17 he had a weakness or dizziness episode causing him to fall. This morning on the he noted a fever and came to the ER for evaluation. He also has noted some lower back pain. He had CT scans to evaluate his spine and he was incidentally noted to have a 1 cm mid left ureteral stone. His creatinine is 1.6 from an unclear baseline. His urinalysis is concerning for infection his white count is minimally elevated at 10. In the ER he did have a low-grade fever of 38.2. Otherwise he has some mild tachycardia but hemodynamically stable. Overnight he states his pain was well-controlled and he feels well. The stone has not passed. He has noted some dysuria - PMH/PSH/Social Hx Does the pt have a hx of MRSA?: No Neurological History: None Eyes, Ears, Nose, Throat: None Cardiovascular: None Respiratory: None Skin: None Endocrine/Autoimmune: None Gastrointestinal: Colon polyps Urinary: Benign prostate hypertrophy, Kidney stones Musculoskeletal: Chronic back pain Blood Disorders: None Psychiatric: None General: Colonoscopy Orthopedic: Arthroscopic surgery Smoking Status: Never smoker Does the pt drink ETOH?: No Does the pt have substance abuse?: No - Home Meds and Allergies Home Medications: Finasteride 5 mg PO DAILY 07/09/13 Lisinopril 5 mg PO DAILY 07/09/13 Loratadine [Claritin] 10 mg PO DAILY 07/09/13 Rosuvastatin Calcium [Crestor] 10 mg PO DAILY 04/25/23 Tamsulosin [Flomax] 1 cap PO DAILY 04/25/23 Gabapentin [Neurontin] 300 mg PO HS 08/18/23 oxyBUTYnin chloride [Oxybutynin Chloride] 5 mg PO DAILY 08/18/23 Allergies/Adverse Reactions: Allergies Allergy/AdvReac Type Severity Reaction Status Date / Time No Known Drug Allergies Allergy Verified 04/25/23 11:52 - Vital Signs Heart Rate: 74 Blood Pressure: 133/67 Temperature: 38.2 C Respiratory Rate: 18 O2 Saturation: 94 Weight (kg): 79.379 kg Height: 1.71 m - Physical Exam General Appearance: positive: No acute distress Respiratory: positive: Breath sounds nml Cardiovascular: positive: Regular rate & rhythm - Patient Review Patient Review: Problems were reviewed with the patient during this visit. Medications were reviewed with the patient during this visit. Allergies were reviewed this patient during this visit. Pertinent Tests Reviewed: All pertitent test for this patient were reviewed. - Assessment & Plan Assessment and Plan: 78-year-old male with history of kidney stones now presents with a fall and left-sided back pain. Concern for urinary tract infection. CT scan with 1 cm mid left ureteral stone Plan: Cystoscopy, left ureteral stent placement. The risks, benefits, alter natives were discussed with the patient. The patient states understanding and consents to the above procedure Continue ceftriaxone N.p.o. until procedure Home meds as appropriate Pain control as appropriate Holding Toradol given creatinine of 1.6
[2023-08-18] MEDS: oxyCODONE 5 MG TABLET PO PRN ×2 (18:12→22:15)
[2023-08-18] MEDS ORDERED: GABAPENTIN 100 MG CAPSULE PO SCH (21:00)
[2023-08-19] MEDS: SODIUM CHLORIDE FLUSH 0.9% 10 ML SYRINGE IVP SCH ×2 (01:45→10:52)
[2023-08-19] MEDS: oxyCODONE 5 MG TABLET PO PRN (02:49)
[2023-08-19] MEDS: SODIUM CHLORIDE 0.9% 1,000 ML IV SCH (02:50)
[2023-08-19] MEDS ORDERED: FINASTERIDE 5 MG TABLET PO SCH (09:00)
[2023-08-19] MEDS ORDERED: DOCUSATE SODIUM 100 MG CAPSULE PO SCH (09:00)
--- NOTE | 2023-08-19 10:25 | PHARMACY PROGRESS NOTE ---
- Best Possible Medication History Admit Date and Time: 08/18/23 1625 Processed by: Nursing Secondary Source(s): Physician records, Insurance records As the person ultimately responsible for medication therapy, providers are able to order a medication from an existing home medication list in [facility] via the "Reconcile Routine" prior to Confirmation of that medication by production support developer. Such practice is discouraged except when the physician, in their clinical judgment, deems that a medical need exists for a medication without regard to previous use.
--- NOTE | 2023-08-19 11:37 | ANESTHESIA ---
Pre-Anesthesia VS, & Labs - Diagnosis kidney stones - Procedure cystoscopy, ureteral stent Vital Signs: Temp Pulse Resp BP Pulse Ox O2 Flow Rate 37.8 C 75 16 128/53 L 90 L 08/19/23 08:00 08/19/23 08:00 08/19/23 08:00 08/19/23 08:00 08/19/23 08:00 Height: 5 ft 7.5 in Weight (kg): 79.379 kg Body Mass Index: 27.0 BMI Classification: Overweight - NPO >8 hours - Lab Results Current Lab Results: Laboratory Tests 08/18/23 16:41: Lactic Acid 1.1 08/18/23 15:18: Sodium 139, Potassium 3.9, Chloride 106, Carbon Dioxide 28, Anion Gap 5.0 L, BUN 30 H, Creatinine 1.6 H, Estimated GFR (MDRD) 42 L, Glucose 113 H, Calcium 9.1, Phosphorus 3.7, Magnesium 1.9, Total Bilirubin 0.3, AST 17, ALT 13, Alkaline Phosphatase 42, Total Protein 6.1 L, Albumin 3.8, Globulin 2.3, Albumin/Globulin Ratio 1.7, Lipase < 10 L 08/18/23 15:18: WBC 10.2, RBC 3.54 L, Hgb 10.5 L, Hct 33.6 L, MCV 94.9 H, MCH 29.7, MCHC 31.3 L, RDW 13.8, Plt Count 178, MPV 11.1, Neut # (Auto) 8.0 H, Lymph # (Auto) 1.0 L, [place] # (Auto) 1.2 H, Eos # (Auto) 0.0, Baso # (Auto) 0.0, Absolute Nucleated RBC 0.00, Nucleated RBC % 0.0 Fish Bones: 08/18/23 15:18 08/18/23 15:18 Home Medications and Allergies Home Medications: Ambulatory Orders Gabapentin [Neurontin] 900 mg PO HS 08/18/23 oxyBUTYnin chloride [Oxybutynin Chloride ER] 5 mg PO QPM 08/19/23 Active Medications Acetaminophen (Acetaminophen 325 Mg Tablet) 650 mg PO Q4HR PRN PRN Reason: Pain 1 to 4, or Fever Docusate Sodium (Docusate Sodium 100 Mg Capsule) 100 mg PO DAILY [facility]YL[facility] Last Admin: 08/19/23 10:52 Dose: Not Given Finasteride (Finasteride 5 Mg Tablet) 5 mg PO DAILY [facility] Last Admin: 08/19/23 10:52 Dose: Not Given Gabapentin (Gabapentin 100 Mg Capsule) 300 mg PO ONCE [facility] Stop: 08/19/23 20:59 Last Admin: 08/18/23 20:32 Dose: 300 mg Ceftriaxone Sodium 1 gm/ (Sodium Chloride) 100 mls @ 200 mls/hr IV ONCE [facility] Stop: 08/19/23 17:01 Sodium Chloride (Normal Saline 0.9%) 1,000 mls @ 100 mls/hr IV .Q10H [facility] Last Admin: 08/19/23 02:50 Dose: 100 mls/hr Morphine Sulfate (Morphine 2 Mg/Ml Carpuject) 1 mg IVP Q2HR PRN PRN Reason: breakthrough pain Ondansetron HCl (Ondansetron 4 Mg/2 Ml Vial) 4 mg IVP Q6HR PRN PRN Reason: Nausea / Vomiting Oxycodone HCl (Oxycodone 5 Mg Tablet) 5 mg PO Q4HR PRN PRN Reason: Pain 5 to 7 Last Admin: 08/19/23 02:49 Dose: 5 mg Oxycodone HCl (Oxycodone 5 Mg Tablet) 10 mg PO Q4HR PRN PRN Reason: Pain 8 to 10 Sodium Chloride (Sodium Chloride Flush 0.9% 10 Ml Syringe) 10 ml IVP PRN PRN PRN Reason: NEEDED PER PROVIDER ORDERS Sodium Chloride (Sodium Chloride Flush 0.9% 10 Ml Syringe) 10 ml IVP 0100,0900,1700 [facility] Last Admin: 08/19/23 10:52 Dose: Not Given Zolpidem Tartrate (Zolpidem 5 Mg Tablet) 5 mg PO QPM PRN PRN Reason: Insomnia Finasteride 5 mg PO DAILY 07/09/13 Lisinopril 5 mg PO BID 07/09/13 Loratadine [Claritin] 10 mg PO DAILY 07/09/13 Rosuvastatin Calcium [Crestor] 10 mg PO DAILY 04/25/23 Tamsulosin [Flomax] 1 cap PO DAILY 04/25/23 Gabapentin [Neurontin] 900 mg PO HS 08/18/23 oxyBUTYnin chloride [Oxybutynin Chloride ER] 5 mg PO QPM 08/19/23 Allergies/Adverse Reactions: Allergies Allergy/AdvReac Type Severity Reaction Status Date / Time No Known Drug Allergies Allergy Verified 04/25/23 11:52 Anes History & Medical History - Anesthetic History Anesthesia Complications: reports: No previous complications - Medical History Cardiovascular: reports: None Pulmonary: reports: None Gastrointestinal: reports: Colon polyps Urinary: reports: Benign prostate hypertrophy, Kidney stones Neuro: reports: None Musculoskeletal: reports: Chronic back pain Endocrine/Autoimmune: reports: None Blood Disorders: reports: None Skin: reports: None Smoking Status: Never smoker - Surgical History General: reports: Colonoscopy Orthopedic: reports: Arthroscopic surgery Exam General: Alert, Oriented x3 Dental: WNL Mouth Opening: Greater than 4 Fingerbreadths Mallampati classification: II Respiratory: Lungs clear Cardiovascular: Regular rate, Normal S1, Normal S2 Plan Anesthesia Type: General Consent for Procedure(s) Verified and Reviewed: Yes Code Status: Attempt Resuscitation ASA classification: 2-Mild systemic disease Is this case an emergency?: No
[2023-08-19] MEDS ORDERED: LIDOCAINE 2% URO-JET 5 ML SYRINGE UR ONE ×3 (11:44→11:49)
[2023-08-19] MEDS ORDERED: fentaNYL 100 MCG/2 ML VIAL ONE (12:05)
[2023-08-19] MEDS ORDERED: cefTRIAXone 1 GM VIAL ONE (12:40)
[2023-08-19] MEDS ORDERED: SODIUM CHLORIDE FLUSH 0.9% 10 ML SYRINGE IVP PRN (12:51)
[2023-08-19] MEDS ORDERED: LACTATED RINGERS 950 ML IV ONE ×2 (12:52)
[2023-08-19] MEDS ORDERED: HYDROmorphone 0.5 MG/0.5 ML SYRINGE IVP PRN (13:02)
[2023-08-19] MEDS ORDERED: MORPHINE 2 MG/ML CARPUJECT IVP PRN (13:02)
[2023-08-19] MEDS ORDERED: ePHEDrine 50 MG/ML VIAL IVP PRN (13:02)
[2023-08-19] MEDS ORDERED: ONDANSETRON 4 MG/2 ML VIAL IVP PRN (13:02)
[2023-08-19] MEDS ORDERED: ATROPINE ABBOJECT 1 MG/10 ML SYRINGE IVP PRN (13:02)
[2023-08-19] MEDS ORDERED: fentaNYL 100 MCG/2 ML VIAL IVP PRN (13:02)
[2023-08-19] MEDS ORDERED: NALOXONE 0.4 MG/ML VIAL IVP PRN (13:02)
[2023-08-19] MEDS ORDERED: METOCLOPRAMIDE 10 MG/2 ML VIAL IVP PRN (13:02)
--- NOTE | 2023-08-19 13:02 | Discharge Plan ---
Discharge Plan Problem Reviewed?: Yes Disposition: Home, Self Care Condition: Stable Prescriptions: Ciprofloxacin HCl 1 tablet PO BID 7 Days #14 tablet Docusate Sodium 100Mg Capsule [Colace 100Mg Capsule] 100 mg PO DAILY #14 cap Diet: Regular Activity Restrictions: No Restrictions Shower Restrictions: No Driving Restrictions: No Instruction Topics: Stents Ureteral Additional Instructions or Follow Up instructions: You have a ureteral stent in place. This will stay in place until you have a subsequent procedure to remove your stone. You must follow-up with Dr. Santos within 3 months. The stent can only stay in place for a maximum of 3 months. Call for fever greater than 100.4 It is normal to have increased frequency and urgency of urination along with seeing blood in the urine while the stent is in place No Smoking: If you smoke, Please STOP! Call for help.
--- NOTE | 2023-08-19 13:06 | OPERATIVE REPORT ---
Operative Report - General Admit Date: 08/18/23 Procedure Date: 08/19/23 Planned Procedure: Cystoscopy, left ureteral stent Pre-Op Diagnosis: Left ureteral stone Procedure Performed: Cystoscopy, left ureteral stent Post Op Diagnosis: same - Procedure Note Primary Surgeon: Tom Anesthesia Provider: SALINA Anesthesia Technique: General LMA Pathology: left kidney urine for culture Findings: Impacted proximal 1cm radioopaque stone in left ureter Complications: none - Other Other Information/Narrative: After informed consent was obtained the patient was brought to the OR and laid in the supine position. The patient was then anesthetized per anesthesia protocols. He was prepped and draped in usual sterile fashion in the dorsolithotomy position. A formal timeout was performed reconfirming the patient, procedure and laterality. Fluoroscopy showed a radiopaque stone in the left proximal ureter just cranial to the iliac crest. A 22 Dominican cystoscope was advanced easily int o urinary bladder and the bladder was inspected and full and appeared normal there were no mucosal abnormalities the urine was clear. A sensor wire was placed to the left ureteral orifice up into the stone but it was impacted and we cannot get past the stone. I then placed a 5 Dominican ureteral catheter over the wire and then attempted to use an angled Glidewire to go past the stone. This was also not successful. I then tried a sensor wire again and thankfully gained access proximally up into the kidney. The 5 Dominican catheter was advanced over the wire and there was a clear effluent to drip, this urine was collected and sent for analysis for urine culture. The wire was replaced and then a 6 Dominican 26 cm double-J ureteral stent was placed with good curling noted in the kidney and good curling noted in the bladder. The bladder was emptied and a Uro-Jet was placed. This concluded the procedure, patient tolerated the procedure well and was brought to the PACU without further incident. He will be monitored for a few hours to ensure he remains afebrile and then he will be discharged home likely later today. All counts were correct He will need definitive stone procedure as an outpatient
[2023-08-19] MEDS ORDERED: LACTATED RINGERS 1,000 ML IV SCH (14:00)
[2023-08-19] MEDS ORDERED: BENZOCAINE/MENTHOL LOZENGE MM PRN (14:09)
--- NOTE | 2023-08-19 14:57 | ANESTHESIA POST OP EVALUATION ---
Anesthesia Post Eval - Post Anesthesia Eval Vitals: Last Vital Signs Temp 37.4 C 08/19/23 14:47 Pulse 79 08/19/23 14:47 Resp 16 08/19/23 14:47 BP 131/62 H 08/19/23 14:47 Pulse Ox 97 08/19/23 14:47 O2 Flow Rate CV Function Including HR & BP: Stable Pain Control: Satisfactory Nausea & Vomiting: Negative Mental Status: Baseline Respiratory Status: Airway Patent Hydration Status: Satisfactory Anesthesia Complications: None
[2023-08-19 14:59] VITALS: BP 131/62; O2SAT 97
--- NOTE | 2023-08-19 15:40 | XRAY Report ---
PROCEDURE: OR C-Arm Procedure INDICATIONS: STENT FLUORO TIME: 0.6 MIN TECHNIQUE: 3 intraoperative fluoroscopic images of left abdomen and pelvis were obtained. COMPARISON: None. FINDINGS: Intraoperative fluoroscopic images shows left-sided ureteral stent placement. IMPRESSION: Fluoroscopy guidance was provided intraoperatively for left-sided ureteral stent placement. Reviewed by: Preston Benson MD on 08/19/2023 3:38 PM PST Approved by: Preston Benson MD on 08/19/2023 3:38 PM PST Station ID: [id number]
[2023-08-19] MEDS ORDERED: SODIUM CHLORIDE FLUSH 0.9% 10 ML SYRINGE IVP SCH (17:00)
[2023-08-19] MEDS ORDERED: cefTRIAXone 1 GM in SODIUM CHLORIDE 0.9% MINIBAG 100 ML IV SCH (17:00)
--- NOTE | 2023-08-20 10:23 | PROVIDER PROGRESS NOTE ---
Subjective - General Admit Date: 08/18/23 Procedure Date: 08/19/23 Post Op Days: 1 - Other Other Information/Narrative: progress note for 08/19/23 refer to H&P Objective - Patient Data Weight: Weight 08/18/23 08/19/23 08/20/23 23:59 23:59 23:59 Weight (kg) 82.5 kg 79.379 kg Intake & Output: Intake and Output Totals x24h 08/18/23 08/19/23 08/20/23 23:59 23:59 23:59 Intake Total 2253.000 1100 Output Total 250 275 Balance 2003.000 825 - Lab Results Lab Results: 08/18/23 15:18 08/18/23 15:18
--- NOTE | 2023-08-20 10:25 | DISCHARGE SUMMARY ---
"Discharge Summary Admit Date: 08/18/23 Discharge Date: 08/19/23 Discharging Provider: Tom Condition at Discharge: Stable Discharge Disposition: 01 Home, Self Care - DIAGNOSES Admission Diagnoses: left ureteral stone Discharge Diagnoses with Status of Each Condition: left ureteral stone - HPI History of Present Illness: Patient presented to the hospital 1 day after having a fall. He had noted left- sided back pain for some time. CT scan showed no evidence of spinal issues but he did have a left ureteral stone. He also had a low-grade fever and urinalysis possibly concerning for infection. He was admitted to the hospital on Dr. Santos service. - CONSULTS | PROCEDURES Procedures: Cystoscopy, left ureteral stent - HOSPITAL COURSE Hospital Course: and on 08/19 he underwent a cystoscopy and left ureteral stent placement. He was discharged home on 08/19 afebrile, HDS, with ciprofloxacin antibiotics and plan for follow-up - ALLERGIES Allergies/Adverse Reactions: Allergies Allergy/AdvReac Type Severity Reaction Status Date / Time No Known Drug Allergies Allergy Verified 04/25/23 11:52 - MEDICATIONS Home Medications: Ambulatory Orders Medication Instructions Recorded Confirmed Finasteride 5 mg PO DAILY 07/09/13 08/18/23 Lisinopril 5 mg PO BID 07/09/13 08/19/23 Loratadine [Claritin] 10 mg PO DAILY 07/09/13 08/18/23 Rosuvastatin Calcium [Crestor] 10 mg PO DAILY 04/25/23 08/18/23 Tamsulosin [Flomax] 1 cap PO DAILY 04/25/23 08/18/23 Gabapentin [Neurontin] 900 mg PO HS 08/18/23 08/19/23 Ciprofloxacin HCl 1 tablet PO BID 7 Days #14 tablet 08/19/23 Docusate Sodium 100Mg Capsule 100 mg PO DAILY #14 cap 08/19/23 [Colace 100Mg Capsule] oxyBUTYnin chloride [Oxybutynin 5 mg PO QPM 08/19/23 08/19/23 Chloride ER] - PHYSICAL EXAM AT DISCHARGE General Appearance: positive: No acute distress - LABS Result Diagrams: 08/18/23 15:18 08/18/23 15:18 - DIAGNOSTIC IMAGING Diagnostic Imaging Results: Read independently - SEPSIS Current Stage of Sepsis: Resolved Possible source of Sepsis: Genitourinary Sepsis Criteria: Recorded Temperature greater than 38.3C or Less than 36C, Recorded Heart Rate greater than 90 bpm - FOLLOW UP Follow Up: followup with Dr Santos for definitive stone management - TIME SPENT Time Spent in Discharge (Minutes): 10"
== END 2023-08-19 15:08 | disposition home or self-care (01) | DRG 661 ==
LOC: EDUNIT# → ED 12:42 → MS2 16:25
PROVIDERS: ADMIT Urology; ATTEND Urology
PROC: 0T778DZ Dilation of Left Ureter with Intraluminal Device, Via Natural or Artificial Opening Endoscopic (ICD-10-PCS; principal; 2023-08-18)
DX: N13.2 Hydronephrosis with renal and ureteral calculous obstruction (principal); N30.00 Acute cystitis without hematuria; R00.0 Tachycardia, unspecified; M54.9 Dorsalgia, unspecified; N40.0 Benign prostatic hyperplasia without lower urinary tract symptoms; S39.92XA Unspecified injury of lower back, initial encounter; W18.30XA Fall on same level, unspecified, initial encounter; M54.50 Low back pain, unspecified; R50.9 Fever, unspecified
CPT/HCPCS: 36415; 70450; 72125; 72128; 72131; 72192; 80053; 81001; 83605; 83690; 83735; 84100; 85025; 87040; 87086; 96374; 99285; A9270; C1758; C2617; J1170; J7120; 81003; 87077; 87181

== ENCOUNTER 2023-09-09 07:03 | Day surgery (SDC) | payer MEDICARE, OTHER ==
[~2023-09-09 07:03] MED LIST: ceFAZolin 2 GM VIAL ONE
[2023-09-09] MEDS ORDERED: LACTATED RINGERS 1,000 ML IV ONE ×2 (07:14→09:42)
[2023-09-09] MEDS ORDERED: iohexoL-240 10 ML VIAL IVP ONE (07:23)
[2023-09-09] MEDS ORDERED: LIDOCAINE 2% URO-JET 5 ML SYRINGE UR ONE ×2 (07:24→09:31)
--- NOTE | 2023-09-09 07:39 | ANESTHESIA ---
Pre-Anesthesia VS, & Labs - Diagnosis L kidney stone - Procedure L ureteroscopy, L laser litho Vital Signs: Temp Pulse Resp BP Pulse Ox O2 Flow Rate 36.4 C L 58 L 16 141/76 H 100 09/09/23 07:05 09/09/23 07:05 09/09/23 07:05 09/09/23 07:05 09/09/23 07:05 Height: 5 ft 8 in Weight (kg): 78 kg Body Mass Index: 26.1 BMI Classification: Overweight - NPO >8 hours - Lab Results Current Lab Results: Laboratory Tests 09/09/23 07:25: POC Whole Bld Glucose 105 H Lab results reviewed: Yes Home Medications and Allergies Home Medications: Ambulatory Orders Wheat Dextrin [Fiber Supplement] 10 mg PO DAILY 09/04/23 Finasteride 5 mg PO DAILY 07/09/13 Lisinopril 5 mg PO BID 07/09/13 Rosuvastatin Calcium [Crestor] 10 mg PO DAILY 04/25/23 Tamsulosin [Flomax] 1 cap PO DAILY 04/25/23 Gabapentin [Neurontin] 300 mg PO HS 08/18/23 oxyBUTYnin chloride [Oxybutynin Chloride ER] 5 mg PO QPM 08/19/23 Wheat Dextrin [Fiber Supplement] 10 mg PO DAILY 09/04/23 Allergies/Adverse Reactions: Allergies Allergy/AdvReac Type Severity Reaction Status Date / Time No Known Drug Allergies Allergy Verified 04/25/23 11:52 Anes History & Medical History - Anesthetic History Anesthesia Complications: reports: No previous complications, Other-see comment (very sore throat after last anethesia here (stent placement, LMA)) Family history of Anesthesia Complications: Denies Family history of Malignant Hyperthermia: Denies - Medical History Cardiovascular: reports: Hypertension, High cholesterol Pulmonary: reports: None Gastrointestinal: reports: Colon polyps Urinary: reports: Benign prostate hypertrophy, Kidney stones Neuro: reports: None Musculoskeletal: reports: Chronic back pain Endocrine/Autoimmune: reports: None Blood Disorders: reports: None Skin: reports: None Smoking Status: Never smoker - Surgical History General: reports: Colonoscopy Orthopedic: reports: Arthroscopic surgery Exam General: Alert, Oriented x3, Cooperative Dental: WNL Mouth Openin Fingerbreadth Neck Mobility: Normal Mallampati classification: II Thyromental Distance: 4-6 cm Respiratory: Lungs clear, Normal breath sounds, No respiratory distress Cardiovascular: Regular rate Neurological: Normal speech Mental/Cognitive Status: Alert/Oriented X3, Normal for patient Cognitive Status: Within normal limits Plan Anesthesia Type: General Consent for Procedure(s) Verified and Reviewed: Yes Code Status: Attempt Resuscitation ASA classification: 2-Mild systemic disease Is this case an emergency?: No
[2023-09-09] MEDS ORDERED: DEXMEDETOMIDINE 200 MCG/2 ML VIAL ONE (07:46)
[2023-09-09] MEDS ORDERED: fentaNYL 100 MCG/2 ML VIAL ONE (07:46)
[2023-09-09] MEDS ORDERED: PROPOFOL 500 MG/50 ML 500 MG/50 ML VIAL ONE (07:46)
[2023-09-09] MEDS ORDERED: ePHEDrine 50 MG/ML VIAL IVP PRN (07:49)
[2023-09-09] MEDS ORDERED: HYDROmorphone 0.5 MG/0.5 ML SYRINGE IVP PRN (07:49)
[2023-09-09] MEDS ORDERED: NALOXONE 0.4 MG/ML VIAL IVP PRN (07:49)
[2023-09-09] MEDS ORDERED: ONDANSETRON 4 MG/2 ML VIAL IVP PRN ×2 (07:49→09:45)
[2023-09-09] MEDS ORDERED: ATROPINE ABBOJECT 1 MG/10 ML SYRINGE IVP PRN (07:49)
[2023-09-09] MEDS ORDERED: METOCLOPRAMIDE 10 MG/2 ML VIAL IVP PRN (07:49)
[2023-09-09] MEDS ORDERED: MORPHINE 2 MG/ML CARPUJECT IVP PRN (07:49)
[2023-09-09] MEDS ORDERED: fentaNYL 100 MCG/2 ML VIAL IVP PRN (07:49)
[2023-09-09] MEDS ORDERED: LACTATED RINGERS 1,000 ML IV SCH (08:00)
[2023-09-09] MEDS ORDERED: ONDANSETRON 4 MG/2 ML VIAL ONE (09:06)
[2023-09-09] MEDS ORDERED: SODIUM CHLORIDE 0.9% 10 ML VIAL IVP ONE (09:07)
[2023-09-09] MEDS ORDERED: ePHEDrine 50 MG/ML VIAL IVP ONE (09:07)
[2023-09-09] MEDS ORDERED: HYDROcod/ACETAM 5/325 MG TABLET PO PRN (09:45)
[2023-09-09] MEDS ORDERED: HYDROmorphone 0.5 MG/0.5 ML SYRINGE ONE (09:54)
--- NOTE | 2023-09-09 09:58 | Discharge Plan ---
Discharge Plan Problem Reviewed?: Yes Disposition: Home, Self Care Condition: Good Prescriptions: Ciprofloxacin HCl [Cipro] 500 mg PO ONCE #1 tablet Docusate Sodium 100Mg Capsule [Colace 100Mg Capsule] 100 mg PO DAILY #7 cap HYDROcod/ACETAM 5/325 [[place] 5/325] 1 tab PO Q4H PRN #10 tablet PRN Reason: Pain Activity Restrictions: No Restrictions Shower Restrictions: No Driving Restrictions: No Instruction Topics: Stents Ureteral Additional Instructions or Follow Up instructions: You will be contacted for followup in one week for cystoscopy for stent removal in the office No Smoking: If you smoke, Please STOP! Call for help.
--- NOTE | 2023-09-09 10:03 | OPERATIVE REPORT ---
Operative Report - General Procedure Date: 09/09/23 Planned Procedure: Cystoscopy, left ureteroscopy, laser lithotripsy and stent exchange Pre-Op Diagnosis: Left ureteral stone Procedure Performed: Cystoscopy, left ureteroscopy, laser lithotripsy and stent exchange Post Op Diagnosis: Left ureteral stone - Procedure Note Primary Surgeon: Tom Anesthesia Technique: General LMA Pathology: Left ureteral stone Complications: none - Other Other Information/Narrative: After informed consent was obtained the patient brought to the OR and laid supine position. The patient was anesthetized per anesthesia protocols and then placed in dorsolithotomy position. He was prepped draped usual sterile fashion. A formal timeout was performed confirming the patient, procedure and laterality. A 22 Bangladeshi scope was Tolbert easily into urinary bladder bladder inspected and full there is no masses lesions or other concerns. His urethral meatus was slightly tight. Stent was emanating from left ureteral orifice. A sensor wire was placed past the stent up into the kidney. The old stent was then removed. A 12 Bangladeshi Macdonald catheter was placed in the bladder to drain the bladder. A flexible ureteroscope was advanced up into the proximal ureter where a large st one was found about 1 cm in size. It was quite hard and green consistent with a calcium oxalate stone. Incidentally it was difficult to see on fluoroscopy as it was overlying a spinal process. Using a 200 m laser fiber the stone was fragmented into small pieces. A second wire was placed and then a 12 1438 cm ureteral sheath was placed up into this area. Using a basket we grasped the stone pieces and remove them. Some were sent for analysis. We cleared the ureter and the kidney from any significant stone pieces. The Macdonald catheter was removed A 6 Bangladeshi 26 cm double-J ureteral stent was placed with good curling on the kidney and good curling noted in the bladder. The bladder was emptied and a Uro-Jet was placed Patient was brought to the PACU without further incident. All counts were correct. The patient will follow-up in 1 week's time for stent removal in the office.
--- NOTE | 2023-09-09 10:23 | ANESTHESIA POST OP EVALUATION ---
Anesthesia Post Eval - Post Anesthesia Eval Vitals: Last Vital Signs Temp 36.2 C L 09/09/23 10:20 Pulse 56 L 09/09/23 10:20 Resp 14 09/09/23 10:20 BP 125/63 09/09/23 10:20 Pulse Ox 99 09/09/23 10:20 O2 Flow Rate CV Function Including HR & BP: Stable Pain Control: Satisfactory Nausea & Vomiting: Negative Mental Status: Baseline Respiratory Status: Airway Patent Hydration Status: Satisfactory Anesthesia Complications: None
[2023-09-09 10:45] VITALS: BP 133/65; O2SAT 100
--- NOTE | 2023-09-09 11:39 | XRAY Report ---
PROCEDURE: OR C-Arm Procedure INDICATIONS: Ureteroscopy/Laser Lithotripsy/Stent Exchange FLUORO TIME: 000.1 TECHNIQUE: Multiple intraoperative fluoroscopic images of the left abdomen were acquired COMPARISON: None. FINDINGS: Multiple fluoroscopic images were acquired demonstrating guidewire placement within the left ureter. A ureteral stent is in visualized in the expected location of the left ureter and presumed left renal pelvis. Distal end of the ureteral stent is not imaged. IMPRESSION: Intraoperative fluoroscopic support for placement of left ureteral stent. Please see separate urology procedure note for further details. Reviewed by: Michael Marti MD on 09/09/2023 11:38 AM PST Approved by: Michael Marti MD on 09/09/2023 11:38 AM PST Station ID: [id number]
== END 2023-09-09 07:04 | disposition home or self-care (01) ==
LOC: SDS 07:03
PROVIDERS: ATTEND Urology
DX: N20.1 Calculus of ureter (principal); N40.1 Benign prostatic hyperplasia with lower urinary tract symptoms; R39.15 Urgency of urination; R35.0 Frequency of micturition; Z87.442 Personal history of urinary calculi; E11.9 Type 2 diabetes mellitus without complications
CPT/HCPCS: 52356; 82365; C1758; C2617; J1170; J7120; Q9966

== ENCOUNTER 2023-10-15 08:18 | Outpatient (CLI) | payer MEDICARE, OTHER ==
[2023-10-15 13:02] LABS: CALCIUM 9.6 mg/dL (8.5-10.3); POTASSIUM 4.5 mmol/L (3.5-4.5)
[2023-10-15 13:04] LABS: ESTIMATED AVERAGE GLUCOSE 120 mg/dL (70-100); HEMOGLOBIN A1c% 5.8 % (4.27-6.07)
== END 2023-10-15 08:19 | disposition home or self-care (01) ==
LOC: LAB.N 08:18
PROVIDERS: ATTEND Physician Assistant Medical
DX: E11.9 Type 2 diabetes mellitus without complications (principal)
CPT/HCPCS: 36415; 80048; 83036

== ENCOUNTER 2024-01-06 06:25 | Day surgery (SDC) | payer MEDICARE, OTHER ==
--- NOTE | 2024-01-06 07:11 | ANESTHESIA ---
Pre-Anesthesia VS, & Labs - Diagnosis screening exam, family history of colon cancer, history of polyps - Procedure colonoscopy Vital Signs: Temp Pulse Resp BP Pulse Ox O2 Flow Rate 36 C L 54 L 16 133/69 H 16 L 01/06/24 06:40 01/06/24 06:40 01/06/24 06:40 01/06/24 06:40 01/06/24 06:40 Height: 5 ft 8 in Weight (kg): 80 kg Body Mass Index: 26.8 BMI Classification: Overweight - NPO >8 hours - Lab Results Current Lab Results: Laboratory Tests 01/06/24 06:56: POC Whole Bld Glucose 93 Home Medications and Allergies Lisinopril 5 mg PO BID 07/09/13 Rosuvastatin Calcium [Crestor] 10 mg PO HS 04/25/23 Gabapentin [Neurontin] 300 mg PO HS 08/18/23 Allergies/Adverse Reactions: Allergies Allergy/AdvReac Type Severity Reaction Status Date / Time No Known Drug Allergies Allergy Verified 12/20/23 13:35 Anes History & Medical History - Anesthetic History Anesthesia Complications: reports: No previous complications - Medical History Cardiovascular: reports: Hypertension, High cholesterol Pulmonary: reports: None Gastrointestinal: reports: None Urinary: reports: Benign prostate hypertrophy, Kidney stones Neuro: reports: None Musculoskeletal: reports: None Endocrine/Autoimmune: reports: None Blood Disorders: reports: None Skin: reports: None Smoking Status: Never smoker Psychosocial: reports: No issues indicated History of Cancer?: No - Surgical History General: reports: Hiatal hernia repair Orthopedic: reports: Arthroscopic surgery Exam General: Alert, Oriented x3, Cooperative, No acute distress Dental: WNL Mouth Openin Fingerbreadth Neck Mobility: Normal Mallampati classification: II Thyromental Distance: 4-6 cm Mental/Cognitive Status: Alert/Oriented X3, Normal for patient Plan Anesthesia Type: General, Total IV Consent for Procedure(s) Verified and Reviewed: Yes Code Status: Attempt Resuscitation ASA classification: 2-Mild systemic disease Is this case an emergency?: No
[2024-01-06] MEDS ORDERED: PROPOFOL 500 MG/50 ML 500 MG/50 ML VIAL ONE (07:14)
[2024-01-06] MEDS: LACTATED RINGERS 1,000 ML IV ONE (08:17)
[2024-01-06 08:55] VITALS: BP 128/57; O2SAT 98
--- NOTE | 2024-01-06 14:10 | ANESTHESIA POST OP EVALUATION ---
Anesthesia Post Eval - Post Anesthesia Eval Vitals: Last Vital Signs Temp 36.2 C L 01/06/24 08:47 Pulse 66 01/06/24 08:17 Resp 18 01/06/24 08:47 BP 128/57 L 01/06/24 08:47 Pulse Ox 98 01/06/24 08:47 O2 Flow Rate CV Function Including HR & BP: Stable Pain Control: Satisfactory Nausea & Vomiting: Negative Mental Status: Baseline Respiratory Status: Airway Patent Hydration Status: Satisfactory Anesthesia Complications: None
== END 2024-01-06 06:26 | disposition home or self-care (01) ==
LOC: SDS 06:25
PROVIDERS: ATTEND Surgery
PROC: 0DBN8ZX Excision of Sigmoid Colon, Via Natural or Artificial Opening Endoscopic, Diagnostic (ICD-10-PCS; principal; 2024-01-06 07:30)
DX: Z12.11 Encounter for screening for malignant neoplasm of colon (principal); D12.5 Benign neoplasm of sigmoid colon; K57.30 Diverticulosis of large intestine without perforation or abscess without bleeding; Z80.0 Family history of malignant neoplasm of digestive organs; K64.1 Second degree hemorrhoids; I10 Essential (primary) hypertension; E78.00 Pure hypercholesterolemia, unspecified; N40.0 Benign prostatic hyperplasia without lower urinary tract symptoms; Z87.891 Personal history of nicotine dependence
CPT/HCPCS: 45385; J7120

== ENCOUNTER 2024-04-20 07:05 | Outpatient (CLI) | payer MEDICARE, OTHER ==
[2024-04-20 13:04] LABS: ALBUMIN 4.7 g/dL (3.2-5.5); ALKALINE PHOSPHATASE 43 IU/L (42-121); ALT ALANINE AMINOTRANSFERASE 23 IU/L (10-60); AST ASPARTATE AMINOTRANSFERASE 19 IU/L (10-42); BILIRUBIN,TOTAL 0.4 mg/dL (0.2-1.0); BUN - BLOOD UREA NITROGEN 30 mg/dL (6-20); CALCIUM 9.9 mg/dL (8.5-10.3); CARBON DIOXIDE - CO2 27 mmol/L (21-32); CHLORIDE 107 mmol/L (101-111); CHOL/HDL RATIO 2.3 (<5.0); CHOLESTEROL 168 mg/dL; GFR - MDRD 72 (>89); GLUCOSE 121 mg/dL (74-104); HDL CHOLESTEROL 74 mg/dL; LDL CHOLESTEROL,CALCULATED 81 mg/dL; LDL/HDL RATIO 1.1 (<3.6); POTASSIUM 4.1 mmol/L (3.5-4.5); SODIUM 141 mmol/L (135-145); TRIGLYCERIDES 67 mg/dL; VLDL CHOLESTEROL 13 mg/dL
[2024-04-20 15:09] LABS: ESTIMATED AVERAGE GLUCOSE 131 mg/dL (70-100); HEMOGLOBIN A1c% 6.2 % (4.27-6.07)
== END 2024-04-20 07:06 | disposition home or self-care (01) ==
LOC: LAB.N 07:05
PROVIDERS: ATTEND Physician Assistant Medical
DX: E11.9 Type 2 diabetes mellitus without complications (principal)
CPT/HCPCS: 36415; 80053; 80061; 83036; 83721

== ENCOUNTER 2024-04-28 14:01 | Outpatient (CLI) | payer MEDICARE, OTHER ==
--- NOTE | 2024-04-28 15:00 | XRAY Report ---
PROCEDURE: Hips w/Pelvis 2-3V BL INDICATIONS: LEFT HIP PAIN TECHNIQUE: 3 view(s) of the hip were acquired. COMPARISON: CT pelvis 08/18/2023. FINDINGS: Bones: No fractures or dislocations. 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 Degenerati ve changes of the visualized lower lumbar spine and pubic symphysis. No suspicious bony lesions. The visualized pelvic ring appears intact. Soft tissues: No suspicious soft tissue calcifications or masses. IMPRESSION: No acute bony abnormality. 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 Reviewed by: Adrian Sims MD on 04/28/2024 2:59 PM PDT Approved by: Adrian Sims MD on 04/28/2024 2:59 PM PDT Station ID: [id number]
== END 2024-04-28 14:02 | disposition home or self-care (01) ==
LOC: DI 14:01
PROVIDERS: ATTEND Physician Assistant Medical
DX: M16.0 Bilateral primary osteoarthritis of hip (principal)

== ENCOUNTER 2024-05-05 09:04 | Outpatient (CLI) | payer MEDICARE, OTHER ==
--- NOTE | 2024-05-05 17:01 | XRAY Report ---
PROCEDURE: Abdomen 1 V INDICATIONS: HX OF KIDNEY STONES TECHNIQUE: 3 views of the abdomen acquired. COMPARISON: None. FINDINGS: Surgical changes and devices: None. Bowel: Nonobstructive bowel gas pattern. Marked colonic stool burden, notably at the hepatic flexure. Soft tissues: No calcifications in the bilateral flanks. No suspicious abdominal calcifications. Vi sualized solid organ contours appear normal in size. Bones: No suspicious bony lesions. IMPRESSION: 1.No calcifications in the bilateral flanks to suggest nephrolithiasis. If there is high clinical pedrito picion, recommend a CT KUB for further evaluation. 2.Marked colonic stool burden, notably at the hepatic flexure, compatible with constipation. Reviewed by: Nate Miller MD on 05/05/2024 5:00 PM PDT Approved by: Nate Miller MD on 05/05/2024 5:00 PM PDT Station ID: [id number]
== END 2024-05-05 09:05 | disposition home or self-care (01) ==
LOC: DI 09:04
PROVIDERS: ATTEND Urology
DX: Z87.442 Personal history of urinary calculi (principal)

== ENCOUNTER 2024-10-17 11:27 | Observation (INO) ==
--- NOTE | 2024-10-17 11:40 | ED Physician Documentation ---
History of Present Illness Stated complaint Stated Complaint: LT FACE DROOP,SLURRED SPEECH Chief complaint Chief Complaint: Neuro History obtained from History obtained from: Patient and Family History of Present Illness Pain level max: 0 Pain level now: 0 Additonal information Additional information: Patient is an 79-year-old male who presents to the emergency department stating that he woke up this morning and did not notice any issues, went down into his noticed that his left side of his face was drooping. He states that he st ill does not notice any symptoms. He has had some slight drooling as well. This was noted about 830 this morning. No chest pain. No shortness of breath. No history of similar symptoms. No numbness, tingling or weakness. He states it is a little difficult to walk and feels like he is going to fall to the left. No falls. No trauma. Not on blood thinners. Review of Systems Constitutional Denies: Fever or Chills Ears, nose, mouth, and throat Denies: Neck pain Cardiovascular Denies: shortness of breath with exertion Respiratory Denies: Shortness of breath or Cough Gastrointestinal Denies: Abdominal pain, Nausea or Vomiting Genitourinary Denies: Painful urination, Flank pain, Urinary frequency or Urinary urgency Musculoskeletal Denies: Back pain or Neck pain Integumentary/Breast Denies: Rash Neurological Denies: Headache Meds/Allgy Home Medications Ambulatory Orders Medication Instructions Recorded Confirmed lisinopril 10 mg tablet 5 mg PO BID 07/09/13 10/17/24 rosuvastatin 10 mg tablet (Crestor) 20 mg PO HS 04/25/23 10/17/24 gabapentin 300 mg capsule 900 mg PO HS 08/18/23 10/17/24 finasteride 5 mg tablet 5 mg PO DAILY 10/17/24 10/17/24 loratadine 10 mg capsule 10 mg PO DAILY 10/17/24 10/17/24 oxybutynin chloride 5 mg tablet 5 mg PO DAILY PM 10/17/24 10/17/24 polydextrose 2.5 gram chewable 10 g PO DAILY 10/17/24 10/17/24 tablet (FiberWell) tamsulosin 0.4 mg capsule 0.4 mg PO DAILY 10/17/24 10/17/24 Allergies Allergies Allergy/AdvReac Type Severity Reaction Status Date / Time No Known Drug Allergies Allergy Verified 10/17/24 11:45 [facility] Medical History Medical History (Updated 10/17/24 @ 17:49 by aNncy Huynh DO) History of BPH HLD (hyperlipidemia) HTN (hypertension) Social History Social History (Updated 10/17/24 @ 12:03 by Kasi Ventura RN) Smoking Status: Former smoker If you are a former smoker, when did you quit? (Date/Year): quit smoking 25 yrs ago Do you dip or chew tobacco?: No Do you vape?: No Living arrangement: At home Living Condition: With spouse/s.o. Relationship: Level: Independent Do you feel safe in your home environment?: Yes Suffered physical, verbal, emotional, or financial abuse?: No History of Abuse: No ETOH Use: None Substance Use: denies use Are you sexually active?: Yes POLST Patient has POLST: No Exam Constitutional normal general appearance and no apparent distress HENMT oropharynx normal moist mucous membranes Eyes PERRL Neck/C-Spine visual inspection normal Respiratory breath sounds equal bilaterally, normal respiratory effort and clear to auscultation bilaterally Cardiovascular normal heart rate noted and regular rhythm noted Gastrointestinal abdomen normal to inspection, abdomen soft to palpation, nontender to palpation and nondistended Genitourinary no CVA tenderness Extremities no deformity no edema Neurology speech normal Left-sided facial droop forehead spared. Left arm and leg weakness. See NIH stroke scale. Psychiatry mental status grossly normal and oriented x3 Skin skin color normal Results Vitals Vitals: Vital Signs - 24 hr 10/17/24 11:39 10/17/24 12:09 10/17/24 12:30 Temperature 36.2 C L Temperature Source Temporal Artery Scan Pulse Rate 68 70 64 Respiratory Rate 20 15 17 Blood Pressure 152/90 H 162/73 H 162/73 H O2 Saturation 98 97 96 O2 Source Room air Room air Room air Pain Intensity 0 0 10/17/24 13:00 10/17/24 13:30 10/17/24 14:00 Temperature Temperature Source Pulse Rate 58 L 52 L 60 Respiratory Rate 21 19 16 Blood Pressure 160/78 H 155/64 H 149/81 H O2 Saturation 97 98 97 O2 Source Room air Room air Room air Pain Intensity 10/17/24 14:30 10/17/24 15:30 10/17/24 16:00 Temperature Temperature Source Pulse Rate 55 L 54 L 59 L Respiratory Rate 20 16 16 Blood Pressure 147/66 H 161/81 H 155/56 H O2 Saturation 96 96 94 O2 Source Room air Room air Room air Pain Intensity 1 10/17/24 16:30 10/17/24 17:00 10/17/24 18:30 Temperature Temperature Source Pulse Rate 57 L 67 77 Respiratory Rate 16 18 14 Blood Pressure 157/62 H 164/75 H 179/83 H O2 Saturation 93 96 99 O2 Source Room air Room air Room air Pain Intensity 0 0 0 Oxygen O2 Source Room air Labs Labs: Laboratory Tests 10/17/24 11:35 WBC 5.0 RBC 4.05 L Hgb 12.5 L Hct 38.2 L MCV 94.3 H MCH 30.9 MCHC 32.7 RDW 13.5 Plt Count 147 MPV 10.4 Neut # (Auto) 2.1 Lymph # (Auto) 2.1 [place] # (Auto) 0.7 Eos # (Auto) 0.2 Baso # (Auto) 0.0 Absolute Nucleated RBC 0.00 Nucleated RBC % 0.0 PT 11.0 INR 1.0 Sodium 137 Potassium 4.2 Chloride 106 Carbon Dioxide 25 Anion Gap 6.0 BUN 47 H Creatinine 1.6 H Estimated GFR (MDRD) 42 L Glucose 116 H Calcium 9.6 Total Bilirubin 0.5 AST 32 ALT 43 Alkaline Phosphatase 46 Total Protein 6.8 Albumin 4.8 Globulin 2.0 L Albumin/Globulin Ratio 2.4 H Triglycerides 49 Cholesterol 157 LDL Cholesterol, Calc 70 VLDL Cholesterol 10 HDL Cholesterol 77 LDL/HDL Ratio 0.9 Cholesterol/HDL Ratio 2.0 Lipase < 10 L Rads (name of study) head CT: Relevant Findings:: Final report received angio head/neck CT: Relevant Findings:: Final report received PD Medical Decision Making ED course Complexity details: reviewed results, considered differential, d/w patient and d/w datastage consultant ED course: 79-year-old male with left-sided stroke symptoms. Unclear exactly when this started, concern for potential "wake-up stroke". Activated as a code stroke. Neurology saw the patient, they feel that he is out of the window for tenecteplase. They recommend aspirin. Can consider Plavix for dual antipla telet therapy after MRI is obtained. Also recommend statin, admission to the hospital for PT/OT, echo and neurochecks. Patient will be boarded in the emergency department awaiting bed availability on the inpatient side. A bed did become available, the hospitalist was consulted and will admit the patient. This document was made in part using voice recognition software. While efforts are made to proofread this document, sound alike and grammatical errors may occur. Discharge Plan Discharge Patient Disposition: 66 [facility] DC/Xfer Condition: Stable Clinical Impression: Stroke Qualifiers: CVA mechanism: unspecified Qualified Code(s): I63.9 - Cerebral infarction, unspecified Prescriptions: No Action lisinopril 10 MG tablet 5 mg PO BID rosuvastatin [Crestor] 10 MG tablet 20 mg PO HS Patient Comments: Take 1 tablet by mouth once a day For cholesterol gabapentin 300 MG capsule 900 mg PO HS finasteride 5 mg tablet 5 mg PO DAILY loratadine 10 mg capsule 10 mg PO DAILY oxybutynin chloride 5 mg tablet 5 mg PO DAILY PM tamsulosin 0.4 mg capsule 0.4 mg PO DAILY FiberWell 2.5 gram tablet,chewable 10 g PO DAILY Print Language: Swedish NIHSS Time 1135: Time: 11:35 Level of Consciousness Level of consciousness: (0) Alert, Keenly responsive LOC Questions: (0) Answers both Q's correct LOC Commands: (0) Performs both correctly Gaze Best Gaze: (0) Normal Visual Visual: (0) No loss Facial Palsy Facial Palsy: (2) Partial paralysis Motor Arms (both separate) Motor Arm (right): (2) Some effort against gravity Motor Arm (left): (0) No drift Motor Legs (both separate) Motor Leg (right): (1) Drift Motor Leg (left): (0) No drift Limb Ataxia Limb Ataxia: (1) Present in 1 limb Sensory Sensory: (0) Normal Best Language Best Language: (0) No aphasia Dysarthria Dysarthria: (1) [id number] dysarthria Extinction and Inattention (formally neg Extinction and inattention: (0) No abnormality Total Score/Results Total Score/Result: 7
[2024-10-17 11:43] LABS: BASOPHILS % (AUTO) 0.2 %; EOSINOPHILS # (AUTO) 0.2 10^3/uL (0.0-0.7); EOSINOPHILS % (AUTO) 3.4 %; HCT - HEMATOCRIT 38.2 % (42.0-52.0); HGB - HEMOGLOBIN 12.5 g/dL (14.0-18.0); LYMPHOCYTES # (AUTO) 2.1 10^3/uL (1.5-3.5); LYMPHOCYTES % (AUTO) 41.2 %; MEAN CORPUSCULAR HEMOGLOBIN 30.9 pg (27.0-31.0); MEAN CORPUSCULAR HGB CONC 32.7 g/dL (32.0-36.0); MEAN CORPUSCULAR VOLUME 94.3 fL (80.0-94.0); MEAN PLATELET VOLUME 10.4 fL (7.4-11.4); MONOCYTES # (AUTO) 0.7 10^3/uL (0.0-1.0); MONOCYTES % (AUTO) 13.1 %; NEUTROPHILS # (AUTO) 2.1 10^3/uL (1.5-6.6); NEUTROPHILS % (AUTO) 41.9 %; PLT - PLATELET COUNT 147 10^3/uL (130-450); RED BLOOD COUNT 4.05 10^6/uL (4.70-6.10); RED CELL DISTRIBUTION WIDTH 13.5 % (12.0-15.0)
[2024-10-17 11:58] LABS: ALBUMIN 4.8 g/dL (3.2-5.5); ALBUMIN/GLOBULIN RATIO 2.4 (1.0-2.2); ALKALINE PHOSPHATASE 46 IU/L (42-121); ALT ALANINE AMINOTRANSFERASE 43 IU/L (10-60); AST ASPARTATE AMINOTRANSFERASE 32 IU/L (10-42); BILIRUBIN,TOTAL 0.5 mg/dL (0.2-1.0); BUN - BLOOD UREA NITROGEN 47 mg/dL (6-20); CALCIUM 9.6 mg/dL (8.5-10.3); CARBON DIOXIDE - CO2 25 mmol/L (21-32); CHLORIDE 106 mmol/L (101-111); CREATININE 1.6 mg/dL (0.6-1.3); GFR - MDRD 42 (>89); GLUCOSE 116 mg/dL (74-104); POTASSIUM 4.2 mmol/L (3.5-4.5); SODIUM 137 mmol/L (135-145); TOTAL PROTEIN 6.8 g/dL (6.4-8.9)
--- NOTE | 2024-10-17 12:00 | CT Report ---
PROCEDURE: CT Head W/O Stroke Protocol INDICATIONS: L sided facial droop, L arm/leg weakness TECHNIQUE: Noncontrast 4.5 mm thick angled axial sections acquired from the foramen magnum to the vertex, with c oronal reformats. For radiation dose reduction, the following was used: automated exposure control, adjustment of mA and/or kV according to patient size. COMPARISON: 08/18/2020. FINDINGS: Image quality: Excellent. CSF spaces: Basal cisterns are patent. No extra-axial fluid collections. Ventricles are normal in size and shape. Brain: No midline shift. No intracranial masses or hemorrhage. Ye-white matter interface is norm al. Age-related global volume loss and chronic microvascular ischemic changes. Intracranial atherosc lerotic vascular calcifications. Skull and face: Calvarium and visualized facial bones are intact, without suspicious lesions. Sinuses: Visualized sinuses and mastoids are clear. IMPRESSION: No acute intracranial pathology Findings were discussed with ordering provider on 10/17/2024 at 11:58 AM. This study fulfills neurological imaging criteria for inclusion or exclusion of acute stroke therapie s based on available published neurological imaging guidelines. Reviewed by: Adrian Sims MD on 10/17/2024 11:59 AM PST Approved by: Adrian Sims MD on 10/17/2024 11:59 AM PST Station ID: [id number]
[2024-10-17 12:03] LABS: LIPASE < 10 U/L (11-82)
[2024-10-17] MEDS: TENECTEPLASE 50 MG/10 ML VIAL IVP STA (12:08)
--- NOTE | 2024-10-17 12:14 | CT Report ---
PROCEDURE: CT Angio Head/Neck INDICATIONS: L sided facial droop, L arm/leg weakness TECHNIQUE: After the administration of intravenous contrast, 1 mm thick sections acquired from the aortic arch t hrough the [place]. 3-dimensional csqcggj-oumiaybbv-fivrocivuw (MIP) and/or volume renderin g reformats were acquired of the central intracranial vasculature and neck separately. For radiation dose reduction, the following was used: automated exposure control, adjustment of mA and/or kV acco rding to patient size. CONTRAST: omni 300, 100 COMPARISON: None. FINDINGS: Image quality: Diagnostic. HEAD CT: Please refer to same-day CT of the head. HEAD CT ANGIOGRAPHY: Anterior circulation: Intracranial internal carotid arteries are normal in size and flow. The flow within the paired anterior cerebral arteries is normal and symmetric. The flow within the middle cer ebral arteries is normal and symmetric. The anterior communicating artery is seen. No aneurysms are seen. Posterior circulation: Visualized portions of the vertebral arteries demonstrate normal caliber, and join to form a normal appearing basilar artery. origin of the bilateral [employer]. Flow within the posterior cerebral arteries is normal and symmetric. No aneurysms are seen. NECK CT ANGIOGRAPHY: Carotid system: The great vessels demonstrate a conventional anatomy as they arise from the aortic a rch with atherosclerotic calcifications. The origins of the common carotid arteries appear patent. The common carotid arteries demonstrate normal caliber and courses. The bifurcation regions demonstr ate vascular calcifications with mild stenosis bilaterally, less than 50%. The internal carotid taylor david demonstrate normal calibers and courses. Posterior circulation: The origins of the vertebral arteries both appear widely patent. The more stokes perior extracranial portions of both vertebral arteries also demonstrate normal courses and calibers. They join to form a normal appearing basilar artery. Soft tissues: Visualized neck soft tissues demonstrate no suspicious abnormalities. Bones: No suspicious bony lesions. Visualized cervical spine appears normally aligned. Degenerativ e changes of the spine. IMPRESSION: No significant intracranial arterial abnormality is seen. No significant abnormality is seen within the arteries of the neck. The estimate of stenosis included in the report of the imaging study was calculated using the NASCET method Reviewed by: Adrian Sims MD on 10/17/2024 12:13 PM PST Approved by: Adrian Sims MD on 10/17/2024 12:13 PM PST Station ID: [email or web address]
[2024-10-17] MEDS: ASPIRIN 325 MG TABLET PO STA (12:39)
[2024-10-17] MEDS: SODIUM CHLORIDE 0.9% 1,000 ML IV STA (13:53)
[2024-10-17] MEDS ORDERED: iohexoL-300 100 ML VIAL ONE (15:26)
[2024-10-17] MEDS: iohexoL-300 100 ML VIAL IVP ONE (15:28)
[2024-10-17] MEDS ORDERED: METOPROLOL 5 MG/5 ML VIAL IVP PRN (17:24)
[2024-10-17 17:44] LABS: CHOLESTEROL 157 mg/dL; HDL CHOLESTEROL 77 mg/dL; LDL CHOLESTEROL,CALCULATED 70 mg/dL; LDL/HDL RATIO 0.9 (<3.6); TRIGLYCERIDES 49 mg/dL; VLDL CHOLESTEROL 10 mg/dL
--- NOTE | 2024-10-17 17:58 | HISTORY & PHYSICAL EXAMINATION ---
Chief Complaint Chief Complaint Chief Complaint: CVA History of Present Illness History of Present Illness HPI Comment/Other: This is an 79-year-old male with a past medical history of Hypertension and hyperlipidemia on lisinopril and Crestor who presents to the ER with complaint of left facial droop and left upper extremity weakness. Patient states that he woke up this morning and did not notice any issues, went down into his noticed that his left side of his face was drooping. He has had some slight drooling as well. See symptoms appeared this morning at 8:20 PM. ED physician consulted neurology. Neurology advised against TNK treatment. Patient was given aspirin [address] head did not show any acute intracranial pathology. CTA of head and neck did not show significant intracranial arterial abnormalities of head and neck. MRI is pending. Chemistry showed slightly elevated creatinine of 1.6. Baseline is around 1.2. On my examination patient Was a 2/31 on NIH stroke scale. Slight aphasia and slight weakness of left upper extremity. Patient denies chest pain, palpitation, abdominal pain or nausea. Patient is a non-smoker, does not drink alcohol. Patient is full code Meds/Allgy Home Medications Ambulatory Orders Medication Instructions Recorded Confirmed lisinopril 10 mg tablet 5 mg PO BID 07/09/13 10/17/24 rosuvastatin 10 mg tablet (Crestor) 20 mg PO HS 04/25/23 10/17/24 gabapentin 300 mg capsule 900 mg PO HS 08/18/23 10/17/24 finasteride 5 mg tablet 5 mg PO DAILY 10/17/24 10/17/24 loratadine 10 mg capsule 10 mg PO DAILY 10/17/24 10/17/24 oxybutynin chloride 5 mg tablet 5 mg PO DAILY PM 10/17/24 10/17/24 polydextrose 2.5 gram chewable 10 g PO DAILY 10/17/24 10/17/24 tablet (FiberWell) tamsulosin 0.4 mg capsule 0.4 mg PO DAILY 10/17/24 10/17/24 Allergies Allergies Allergy/AdvReac Type Severity Reaction Status Date / Time No Known Drug Allergies Allergy Verified 10/17/24 11:45 [facility] Medical History Medical History (Updated 10/17/24 @ 17:49 by Nancy Huynh DO) History of BPH HLD (hyperlipidemia) HTN (hypertension) Social History Social History (Updated 10/17/24 @ 12:03 by Kasi Ventura RN) Smoking Status: Former smoker If you are a former smoker, when did you quit? (Date/Year): quit smoking 25 yrs ago Do you dip or chew tobacco?: No Do you vape?: No Living arrangement: At home Living Condition: With spouse/s.o. Relationship: Level: Independent Do you feel safe in your home environment?: Yes Suffered physical, verbal, emotional, or financial abuse?: No History of Abuse: No ETOH Use: None Substance Use: denies use Are you sexually active?: Yes POLST Patient has POLST: No Review of Systems Status of ROS: 10 or more systems reviewed and unremarkable except as noted in history and below Exam Constitutional normal general appearance and no apparent distress HENMT normocephalic and head/scalp atraumatic Eyes PERRL and EOMs intact bilaterally Neck/C-Spine visual inspection normal and trachea midline Chest inspection of chest normal and palpation of chest normal Respiratory breath sounds equal bilaterally and normal respiratory effort Cardiovascular normal heart rate noted and regular rhythm noted Gastrointestinal abdomen normal to inspection and abdomen soft to palpation Extremities normal to inspection 2 out of 3 strength in Upper extremity, Skin skin color normal and no rash Conclusion/Plan Problem List (1) Ischemic stroke: Plan: CT head negative for intracranial bleed. Follow MRI, pending Follow Cardiac echo Start patient on DAPT, Aspirin 81, Plavix 75 Keep blood pressure below 180, Lopressor as needed Monitor blood glucose PT/OT consult Swallow study Fasting lipid panel, Start statin therapy if patient passes swallow study ESR N.p.o. (2) HLD (hyperlipidemia): Plan: Hold oral Crestor, (3) History of BPH: Plan: Hold finasteride and Flomax, Oxybutynin Restart if patient passes follow study. Lab Results Lab results reviewed: Yes 10/17/24 11:35 10/17/24 11:35 Diagnostic Imaging Results Diagnostic Imaging Results: positive Final report reviewed EKG Results EKG Interpreted Independently: Yes
[2024-10-17] MEDS ORDERED: hydrALAZINE INJ 20 MG/ML VIAL IVP PRN (18:15)
--- NOTE | 2024-10-17 18:15 | MRI Report ---
PROCEDURE: MRI Brain WO INDICATIONS: L arm/leg weakness, L facial droop TECHNIQUE: Noncontrast axial T1 spin echo, axial T2 fast spin echo, sagittal and axial FLAIR, coronal T2 fast sp in echo, axial gradient echo, axial diffusion and ADC through the brain. COMPARISON: 09/29/2014, Correlation is made with the accompanying imaging. FINDINGS: Image quality: Excellent. CSF Spaces: Basal cisterns are patent. Mild prominence of extra-axial fluid can be seen on both side s. Ventricles are normal in size and shape. Brain: There are are mild foci of abnormally increased diffusion-weighted signal seen within the mid to posterior right frontal lobe, as on series 12 images 40 through 42. Associated dark signal can be seen within these regions. No intracranial masses or hemorrhage. Ye/white matter interface is normal. Brainstem appears norm al. No chronic ischemic insults. Normal intravascular flow voids are present. Age-appropriate br ain parenchymal volume loss and chronic small vessel ischemic change can be seen. Symmetric calcific ation of the basal ganglia can be seen, which is considered to be within normal limits for age. Skull and face: Calvarium has normal marrow signal. Orbits appear normal. Sinuses: Sinuses and mastoids are clear. IMPRESSION: Right frontal lobe acute subacute infarctions seen. Reviewed by: Tulio Melo MD on 10/17/2024 5:14 PM [facility] Approved by: Tulio Melo MD on 10/17/2024 5:14 PM [facility] Station ID: [id number]
[2024-10-17 21:20] LABS: ESTIMATED AVERAGE GLUCOSE 134 mg/dL (70-100); HEMOGLOBIN A1c% 6.3 % (4.27-6.07)
[2024-10-18] MEDS ORDERED: SODIUM CHLORIDE FLUSH 0.9% 10 ML SYRINGE IVP PRN (03:20)
[2024-10-18] MEDS ORDERED: ONDANSETRON 4 MG/2 ML VIAL IVP PRN (03:20)
[2024-10-18] MEDS ORDERED: HYDROmorphone 0.5 MG/0.5 ML SYRINGE IVP PRN (03:20)
[2024-10-18] MEDS: INSULIN REGULAR, HUMAN 300 UNIT/3 ML PEN SUBQ SCH (03:23)
[2024-10-18] MEDS: DEXTROSE 5%-0.9% NACL 1,000 ML IV SCH (04:32)
[2024-10-18] MEDS: SODIUM CHLORIDE FLUSH 0.9% 10 ML SYRINGE IVP SCH (04:33)
[2024-10-18 05:55] LABS: BASOPHILS % (AUTO) 0.2 %; EOSINOPHILS # (AUTO) 0.1 10^3/uL (0.0-0.7); EOSINOPHILS % (AUTO) 2.3 %; HCT - HEMATOCRIT 35.7 % (42.0-52.0); HGB - HEMOGLOBIN 11.8 g/dL (14.0-18.0); LYMPHOCYTES # (AUTO) 1.4 10^3/uL (1.5-3.5); LYMPHOCYTES % (AUTO) 29.9 %; MEAN CORPUSCULAR HEMOGLOBIN 30.6 pg (27.0-31.0); MEAN CORPUSCULAR HGB CONC 33.1 g/dL (32.0-36.0); MEAN CORPUSCULAR VOLUME 92.7 fL (80.0-94.0); MEAN PLATELET VOLUME 10.2 fL (7.4-11.4); MONOCYTES # (AUTO) 0.6 10^3/uL (0.0-1.0); MONOCYTES % (AUTO) 12.4 %; NEUTROPHILS # (AUTO) 2.6 10^3/uL (1.5-6.6); NEUTROPHILS % (AUTO) 55.2 %; PLT - PLATELET COUNT 138 10^3/uL (130-450); RED BLOOD COUNT 3.85 10^6/uL (4.70-6.10); RED CELL DISTRIBUTION WIDTH 13.4 % (12.0-15.0); WHITE BLOOD COUNT 4.7 x10^3/uL (4.8-10.8)
[2024-10-18 06:31] LABS: CALCIUM 9.3 mg/dL (8.5-10.3); CREATININE 1.2 mg/dL (0.6-1.3); POTASSIUM 4.1 mmol/L (3.5-4.5)
[2024-10-18 08:23] VITALS: TEMP 97.7; O2SAT 94
[2024-10-18] MEDS: ENOXAPARIN 40 MG/0.4 ML SYRINGE SUBQ SCH (08:59)
[2024-10-18] MEDS: CLOPIDOGREL 75 MG TABLET PO SCH (08:59)
[2024-10-18] MEDS ORDERED: ASPIRIN EC 81 MG TABLET PO SCH (09:00)
[2024-10-18] MEDS ORDERED: ASPIRIN EC 325 MG TABLET PO SCH (09:00)
--- NOTE | 2024-10-18 09:12 | PROVIDER PROGRESS NOTE ---
Subjective Prog Note Date Prog Note Date: 10/18/24 Prog Note Time: 09:05 Subjective Subjective: This is an 79-year-old male with a past medical history of Hypertension and hyperlipidemia on lisinopril and Crestor who presents to the ER with complaint of left facial droop and left upper extremity weakness. Patient states that he woke up this morning and did not notice any issues, went down into his noticed that his left side of his face was drooping. He has had some slight drooling as well. See symptoms appeared this morning at 8:20 PM. ED physician consulted neurology. Neurology advised against TNK treatment. Patient was given aspirin [address] head did not show any acute intracranial pathology. CTA of head and neck did not show significant intracranial arterial abnormalities of head and neck. MRI is pending. Chemistry showed slightly elevated creatinine of 1.6. Baseline is around 1.2. On my examination patient Was a 2/31 on NIH stroke scale. Slight aphasia and slight weakness of left upper extremity. Patient denies chest pain, palpitation, abdominal pain or nausea. Patient is a non-smoker, does not drink alcohol. Patient is full code 10/18/2024: No overnight events. Patient feels well. Has many questions concerning rehab and MRI results. Current Medications Current Medications Current Medications: Current Medications Generic Name Dose Route Start Last Admin Trade Name Freq PRN Reason Stop Dose Admin Aspirin 162 mg 10/18/24 09:00 Aspirin Ec 81 Mg Tablet PO DAILY [facility] Aspirin 325 mg 10/18/24 09:00 Aspirin Ec 325 Mg Tablet PO DAILY [facility] Clopidogrel Bisulfate 75 mg 10/18/24 09:00 Clopidogrel 75 Mg Tablet PO DAILY [facility] Enoxaparin Sodium 40 mg 10/18/24 09:00 Enoxaparin 40 Mg/0.4 Ml Syringe SUBQ DAILY [facility] Hydralazine HCl 10 mg 10/17/24 18:15 Hydralazine Inj 20 Mg/Ml Vial IVP Q4HR PRN Hypertensive Emergency Hydromorphone HCl 0.5 mg 10/18/24 03:20 Hydromorphone 0.5 Mg/0.5 Ml Syringe IVP Q2H PRN Pain 8 to 10 Dextrose/Sodium Chloride 1,000 mls @ 75 mls/hr 10/18/24 03:20 10/18/24 04:32 D5ns IV 75 mls/hr .[id number] [facility] Administration Insulin Human Regular 1 - 5 unit 10/17/24 18:00 10/18/24 06:44 Insulin Regular, Human 300 Unit/3 Ml Pen SUBQ Not Given Q6HR [facility] Protocol Metoprolol Tartrate 5 mg 10/17/24 17:24 Metoprolol 5 Mg/5 Ml Vial IVP Q4HR PRN Hypertensive Emergency Ondansetron HCl 4 mg 10/18/24 03:20 Ondansetron 4 Mg/2 Ml Vial IVP Q6HR PRN Nausea / Vomiting Sodium Chloride 10 ml 10/18/24 03:20 Sodium Chloride Flush 0.9% 10 Ml Syringe IVP PRN PRN NEEDED PER PROVIDER ORDERS Sodium Chloride 10 ml 10/18/24 03:20 10/18/24 04:33 Sodium Chloride Flush 0.9% 10 Ml Syringe IVP 10 ml 0100,0900,1700 [facility] Administration Objective Vital Signs/Intake & Output Reviewed Vital Signs: Yes Vital Signs: Vital Signs x48h Temp Pulse Resp BP Pulse Ox 10/18/24 08:21 36.5 C 65 18 154/77 H 94 10/18/24 04:07 36.6 C 68 16 96/71 96 Intake & Output: Intake & Output 10/15/24 10/16/24 10/17/24 10/18/24 23:59 23:59 23:59 23:59 Intake Total 1000 / 1000 Output Total 500 / 500 800 / 800 Balance 500 / 500 -800 / -800 Weight (kg) 90.8 kg 88.5 kg Objective General Appearance: positive No acute distress and Alert Eyes Bilateral: positive Normal inspection and PERRL ENT: positive ENT inspection nml, Pharynx nml and Other (Left-sided facial droop,) Neck: positive Nml inspection and Trachea midline Respiratory: positive Chest non-tender and No respiratory distress Cardiovascular: positive Regular rate & rhythm and No murmur Abdomen: positive Non-tender and No organomegaly Skin: positive Color nml and No rash Extremities: positive Non-tender and Other (Slight 2/3 left upper extremity weakness) Neurologic/Psychiatric: positive Oriented x3 and CN's nml (2-12) Lab Results 10/18/24 05:45 10/18/24 05:45 Other Labs: Lab Results x24hrs 10/18/24 10/18/24 10/17/24 Range/Units 05:45 00:17 19:26 WBC 4.7 L (4.8-10.8) x10^3/uL RBC 3.85 L (4.70-6.10) 10^6/uL Hgb 11.8 L (14.0-18.0) g/dL Hct 35.7 L (42.0-52.0) % MCV 92.7 (80.0-94.0) fL MCH 30.6 (27.0-31.0) pg MCHC 33.1 (32.0-36.0) g/dL RDW 13.4 (12.0-15.0) % Plt Count 138 (130-450) 10^3/uL MPV 10.2 (7.4-11.4) fL Neut # (Auto) 2.6 (1.5-6.6) 10^3/uL Lymph # (Auto) 1.4 L (1.5-3.5) 10^3/uL Johnson # (Auto) 0.6 (0.0-1.0) 10^3/uL Eos # (Auto) 0.1 (0.0-0.7) 10^3/uL Baso # (Auto) 0.0 (0.0-0.1) 10^3/uL Absolute Nucleated RBC 0.00 x10^3/uL Nucleated RBC % 0.0 /100WBC ESR (0-20) mm/Hr PT (9.9-12.6) secs INR (0.8-1.2) Sodium 140 (135-145) mmol/L Potassium 4.1 (3.5-4.5) mmol/L Chloride 109 (101-111) mmol/L Carbon Dioxide 26 (21-32) mmol/L Anion Gap 5.0 L (6-13) BUN 29 H (6-20) mg/dL Creatinine 1.2 (0.6-1.3) mg/dL Estimated GFR (MDRD) 58 L (>89) Glucose 118 H (74-104) mg/dL POC Whole Bld Glucose 100 96 (70-100) mg/dL Estimat Average Glucose (70-100) mg/dL Hemoglobin A1c % (4.27-6.07) % Calcium 9.3 (8.5-10.3) mg/dL Total Bilirubin (0.2-1.0) mg/dL AST (10-42) IU/L ALT (10-60) IU/L Alkaline Phosphatase (42-121) IU/L Total Protein (6.4-8.9) g/dL Albumin (3.2-5.5) g/dL Globulin (2.1-4.2) g/dL Albumin/Globulin Ratio (1.0-2.2) Triglycerides mg/dL Cholesterol ( - 200) mg/dL LDL Cholesterol, Calc ( - 129) mg/dL VLDL Cholesterol mg/dL HDL Cholesterol (60 - ) mg/dL LDL/HDL Ratio (<3.6) Cholesterol/HDL Ratio (<5.0) Lipase (11-82) U/L 10/17/24 10/17/24 10/17/24 Range/Units 11:39 11:35 05:45 WBC 5.0 (4.8-10.8) x10^3/uL RBC 4.05 L (4.70-6.10) 10^6/uL Hgb 12.5 L (14.0-18.0) g/dL Hct 38.2 L (42.0-52.0) % MCV 94.3 H (80.0-94.0) fL MCH 30.9 (27.0-31.0) pg MCHC 32.7 (32.0-36.0) g/dL RDW 13.5 (12.0-15.0) % Plt Count 147 (130-450) 10^3/uL MPV 10.4 (7.4-11.4) fL Neut # (Auto) 2.1 (1.5-6.6) 10^3/uL Lymph # (Auto) 2.1 (1.5-3.5) 10^3/uL Johnson # (Auto) 0.7 (0.0-1.0) 10^3/uL Eos # (Auto) 0.2 (0.0-0.7) 10^3/uL Baso # (Auto) 0.0 (0.0-0.1) 10^3/uL Absolute Nucleated RBC 0.00 x10^3/uL Nucleated RBC % 0.0 /100WBC ESR 12 (0-20) mm/Hr PT 11.0 (9.9-12.6) secs INR 1.0 (0.8-1.2) Sodium 137 (135-145) mmol/L Potassium 4.2 (3.5-4.5) mmol/L Chloride 106 (101-111) mmol/L Carbon Dioxide 25 (21-32) mmol/L Anion Gap 6.0 (6-13) BUN 47 H (6-20) mg/dL Creatinine 1.6 H (0.6-1.3) mg/dL Estimated GFR (MDRD) 42 L (>89) Glucose 116 H (74-104) mg/dL POC Whole Bld Glucose (70-100) mg/dL Estimat Average Glucose 134 H (70-100) mg/dL Hemoglobin A1c % 6.3 H (4.27-6.07) % Calcium 9.6 (8.5-10.3) mg/dL Total Bilirubin 0.5 (0.2-1.0) mg/dL AST 32 (10-42) IU/L ALT 43 (10-60) IU/L Alkaline Phosphatase 46 (42-121) IU/L Total Protein 6.8 (6.4-8.9) g/dL Albumin 4.8 (3.2-5.5) g/dL Globulin 2.0 L (2.1-4.2) g/dL Albumin/Globulin Ratio 2.4 H (1.0-2.2) Triglycerides 49 mg/dL Cholesterol 157 ( - 200) mg/dL LDL Cholesterol, Calc 70 ( - 129) mg/dL VLDL Cholesterol 10 mg/dL HDL Cholesterol 77 (60 - ) mg/dL LDL/HDL Ratio 0.9 (<3.6) Cholesterol/HDL Ratio 2.0 (<5.0) Lipase < 10 L (11-82) U/L Diagnostic Imaging Diagnostic Imaging Results: positive Final report reviewed Assessment/Plan Problem List (1) Ischemic stroke: Impression: CT head negative for intracranial bleed. MRI indicates right frontal lobe acute/subacute infarction Follow Cardiac echo Start patient on DAPT, Aspirin 81, Plavix 75 Keep blood pressure below 180, Lopressor as needed Monitor blood glucose PT/OT consult Swallow study Fasting lipid panel Does not indicate hyperlipidemia. Continue statin therapy if patient passes swallow study ESR N.p.o. (2) HLD (hyperlipidemia): Impression: Fasting limit lipid panel Indicates cholesterol level within normal limits. Patient is on home medication of Crestor Continue statin Therapy (3) History of BPH: Impression: Hold finasteride and Flomax, Oxybutynin Restart if patient passes follow study.
--- NOTE | 2024-10-18 10:58 | Discharge Summary ---
Discharge Summary Admit Date: 10/17/24 Discharge Date: 10/18/24 Discharging Provider: Amina Code Status: Attempt Resuscitation DIAGNOSES Admission Diagnoses: Acute ischemic stroke Discharge Diagnoses with Status of Each Condition: Acute posterior frontal Ischemic stroke - Active, home medication aspirin and Plavix, Crestor HPI History of Present Illness: This is an 79-year-old male with a past medical history of Hypertension and hyperlipidemia on lisinopril and Crestor who presents to the ER with complaint of left facial droop and left upper extremity weakness. Patient states that he woke up this morning and did not notice any issues, went down into his noticed that his left side of his face was drooping. He has had some slight drooling as well. See symptoms appeared this morning at 8:20 PM. ED physician consulted neurology. Neurology advised against TNK treatment. Patient was given aspirin [address] head did not show any acute intracranial pathology. CTA of head and neck did not show significant intracranial arterial abnormalities of head and neck. MRI is pending. Chemistry showed slightly elevated creatinine of 1.6. Baseline is around 1.2. On my examination patient Was a 2/31 on NIH stroke scale. Slight aphasia and slight weakness of left upper extremity. Patient denies chest pain, palpitation, abdominal pain or nausea. Patient is a non-smoker, does not drink alcohol. Patient is full code 10/18/2024: No overnight events. Patient feels well. Has many questions concerning rehab and MRI results. HOSPITAL COURSE Hospital Course: Patient was was admitted for acute ischemic stroke. ED consulted neurology who advised against TNK. CT angio head was negative for any acute obstructions. CT head negative for intracranial bleed. MRI indicates right frontal lobe acute/subacute infarction Follow Cardiac echo Start patient on DAPT, Aspirin 81, Plavix 75 Keep blood pressure below 180, Lopressor as needed Monitor blood glucose PT/OT consult Swallow study Fasting lipid panel Does not indicate hyperlipidemia. Continue statin therapy if patient passes swallow study Patient passed the test for the swallow study. PT recommended outpatient Physical therapy Patient was started on Lovenox And discharged with home medication for aspirin and Plavix. Patient was asked to see her primary as primary care physician for referral for echocardiogram. ALLERGIES Allergies Allergy/AdvReac Type Severity Reaction Status Date / Time No Known Drug Allergies Allergy Verified 10/17/24 11:45 MEDICATIONS Ambulatory Orders Medication Instructions Recorded Confirmed lisinopril 10 mg tablet 5 mg PO BID 07/09/13 10/17/24 rosuvastatin 10 mg tablet (Crestor) 20 mg PO HS 04/25/23 10/17/24 gabapentin 300 mg capsule 900 mg PO HS 08/18/23 10/17/24 finasteride 5 mg tablet 5 mg PO DAILY 10/17/24 10/17/24 loratadine 10 mg capsule 10 mg PO DAILY 10/17/24 10/17/24 oxybutynin chloride 5 mg tablet 5 mg PO DAILY PM 10/17/24 10/17/24 polydextrose 2.5 gram chewable 10 g PO DAILY 10/17/24 10/17/24 tablet (FiberWell) tamsulosin 0.4 mg capsule 0.4 mg PO DAILY 10/17/24 10/17/24 aspirin 81 mg tablet,delayed 162 mg (2 x 81 mg) PO DAILY #360 10/18/24 release tabs clopidogrel 75 mg tablet 75 mg PO DAILY #60 tabs 10/18/24 PHYSICAL EXAM AT DISCHARGE General Appearance: positive No acute distress and Alert Eyes Bilateral: positive Normal inspection and PERRL ENT: positive ENT inspection nml, Pharynx nml and Other (Left facial droop) Neck: positive Nml inspection and Trachea midline Respiratory: positive Chest non-tender and No respiratory distress Cardiovascular: positive Regular rate & rhythm and No murmur Abdomen: positive Non-tender and No organomegaly Skin: positive Color nml and No rash Extremities: positive Non-tender, Full ROM and Other (Slight 2/3 weakness of left upper extremity) Neurologic/Psychiatric: positive Oriented x3, CN's nml (2-12), Sensation nml, Facial droop and Slurred/abnml speech LABS 10/18/24 05:45 10/18/24 05:45 DIAGNOSTIC IMAGING Diagnostic Imaging Results: Final report reviewed TIME SPENT Time Spent in Discharge (Minutes): 30 Discharge Plan Discharge Patient Disposition: Home, Self Care Condition: Stable Medically Cleared Date:: 10/18/24 Prescriptions: New clopidogrel 75 mg Tablet 75 mg PO DAILY Qty: 60 6RF Rx Instructions: take 1 tab per day in the morning aspirin 81 mg Tablet,Delayed Release (Dr/Ec) 162 mg PO DAILY Qty: 360 0RF Rx Instructions: take 2 tabs a day in the morning Continued lisinopril 10 MG tablet 5 mg PO BID rosuvastatin [Crestor] 10 MG tablet 20 mg PO HS Patient Comments: Take 1 tablet by mouth once a day For cholesterol gabapentin 300 MG capsule 900 mg PO HS finasteride 5 mg tablet 5 mg PO DAILY loratadine 10 mg capsule 10 mg PO DAILY oxybutynin chloride 5 mg tablet 5 mg PO DAILY PM tamsulosin 0.4 mg capsule 0.4 mg PO DAILY FiberWell 2.5 gram tablet,chewable 10 g PO DAILY Interventions: Discharge Last Done: 10/18/24 12:48 Discharge Checklist - Nursing Last Done: 10/18/24 12:47 Health Concerns: You were admitted for acute ischemic stroke. CT angio and CT head did not show any Acute obstructions. MRI indicated a frontal acute infarct. Physical therapy recommended: Outpatient physical therapy Continue taking All your home medications. New medication: Aspirin 162/day, (2 baby aspirins per day) Plavix 75 mg/day (1 tablet/day) Please follow-up with your primary care physician within 7 days for a referral for a Echo cardiogram, speech therapy, physical therapy. Assessment: Aspirin 162: Plavix 75 Print Language: Divehi Patient Instructions: Stroke Ischemic Stand Alone Forms: PCP List Follow-up Care: Ursula Mak PA-C [Primary Care Provider] -
[2024-10-18] MEDS: lisinopriL 5 MG TABLET PO SCH (11:29)
[2024-10-18] MEDS: FINASTERIDE 5 MG TABLET PO SCH (11:29)
[2024-10-18] MEDS: LORATADINE 10 MG TABLET PO SCH (11:29)
[2024-10-18 13:02] VITALS: BP 143/70
--- NOTE | 2024-10-18 13:02 | PT Plan of Care ---
PT Inpatient Plan of Care DIAGNOSIS Diagnosis: CVA - frontal lobe infarct Referring Provider: Nancy Huynh Patient Status: Observation CHIEF COMPLAINT Chief Complaint: L sided weakness and facial droop Onset of Chief Complaint: HOST/[employer] on 10/17/24 MEDICAL/SURGICAL HISTORY Medical History (Updated 10/17/24 @ 17:49 by Nancy Huynh, DO) History of BPH HLD (hyperlipidemia) HTN (hypertension) BALANCE/FUNCTIONAL RESULTS Sitting Balance: Good Standing Balance: Good Foy Balance Evaluation Total Score: 51 Foy Balance Test Interpretation: Low Fall Risk ASSESSMENT Assessment: The pt is pleasant and active 79 y/o M who arrived to the ED on 10/17/24 due to new onset of L sided weakness and facial droop, imaging was remarkable for a frontal lobe infarct and he was admitted. He presented today with L sided facial droop, trace L sided UE and LE weakness, impaired L UE and LE proprioception, and mild standing balance deficits. At this time recommend that the pt DC home with OP PT, OT, and [employer] to restore his very active and Ind PLOF once medically cleared. He was receptive to CVA education provided and eager to begin OP therapy services PATRICK. At then end of the session he was sitting up in a recliner with all needs med and call light in hand while visiting with his . RN and MD updated on DC rec. As this is an eval only there will be no goals set. PATIENT/FAMILY GOALS Patient/Family Goals: To get home and get stronger PLAN Frequency: Evaluation only, no further P.T. DISCHARGE RECOMMENDATIONS Discharge Location: Previous Living Situation Support/Services Needed: Outpt. P.T. Other Discharge Equipment: no recommended DME Transport Needs at Discharge: Personal vehicle
== END 2024-10-18 12:30 | disposition home or self-care (01) ==
LOC: ED 11:27 → MS2 11:27
PROVIDERS: ADMIT Internal Medicine; ATTEND Internal Medicine
DX: N40.0 Benign prostatic hyperplasia without lower urinary tract symptoms; E78.5 Hyperlipidemia, unspecified; I63.9 Cerebral infarction, unspecified; Z87.891 Personal history of nicotine dependence; R47.01 Aphasia; R29.810 Facial weakness; R29.707 NIHSS score 7; G83.24 Monoplegia of upper limb affecting left nondominant side; I10 Essential (primary) hypertension